=== PATIENT | female | born 1950 | race Caucasian/White ===

== ENCOUNTER 2017-05-20 15:05 | Inpatient (IN) ==
[2017-05-20] MEDS ORDERED: methylPREDNISolone SOD SUC 125 MG/2 ML VIAL IV STA (15:30)
[2017-05-20] MEDS ORDERED: ALBUTEROL 2.5 MG/3 ML NEB RESP TX SCH (15:30)
[2017-05-20] MEDS ORDERED: LEVOFLOXACIN INJ 500 MG in PREMIX 1 EACH IV STA (15:30)
[2017-05-20] MEDS ORDERED: methylPREDNISolone SOD SUC 125 MG/2 ML VIAL ONE (15:33)
--- NOTE | 2017-05-20 15:37 | Emergency Department Note ---
Gerald Strong Brooke, am scribing for, and in the presence of, Russ Chopra MD 15:34 . Keysha Strong James D, MD, personally performed the services described in this documentation, ascribed by Kasie Duarte in my presence, and it is both accurate and complete 537 . Arrival - Arrival Mode of Arrival: Stretcher Limitations: No Limitations Source: Patient, Family, RN Notes Reviewed - History of Present Illness Onset (ago): day(s) ("several") <Russ Chopra - Last Filed: 05/20/17 15:55> <Jhoan Laguerre - Last Filed: 05/20/17 16:40> - Arrival Chief Complaint: Shortness of Breath Stated Complaint: shortness of breath times one week; COPD Time Seen by Provider: 05/20/17 15:27 - History of Present Illness HPI Narrative: Patient is a 66 year old female who presents to the ED with c/o shortness of breath and wheezing that has been ongoing for the past "several" days. Patient was discharged from [facility], last Saturday, after being admitted with a CVA. Patient says she quit smoking on the day of discharge but did smoke two packs of cigarettes a day. She has home nebulizer breathing treatments but does not have an inhaler. Patient also has PMHx of HTN, anxiety, depression, dyslipidemia, GERD, and back/neck problems. Patient also says Dr. Rasmussen told her she had "heart spasms." (Kasie Duarte) Patient is a 66 year old female who presents to the ED with c/o shortness of breath and wheezing that has been ongoing for the past "several" days. Family and patient both state that she has been short of breath for 1 week. She denies chest pain. Patient was discharged from [facility], last Saturday, after being admitted with a CVA. Patient says she quit smoking on the day of discharge but did smoke two packs of cigarettes a day. She has home nebulizer breathing treatments but does not have an inhaler. Patient also has PMHx of HTN, anxiety, depression, dyslipidemia, GERD, and back/neck problems. Patient also says Dr. Rasmussen told her she had "heart spasms." (Russ Chopra) Allergies/Adverse Reactions: Allergies Allergy/AdvReac Type Severity Reaction Status Date / Time codeine Allergy Vomiting Verified 05/11/17 12:57 morphine Allergy Vomiting Verified 05/11/17 12:57 Home Medications: Home Medications Medication Instructions Recorded Confirmed Type Acetaminophen Tab [Tylenol Tab] 325 mg PO Q6H PRN 05/20/17 05/20/17 History Aspirin Chew Tab 81 mg PO BEDTIME 05/20/17 05/20/17 History Atorvastatin [Lipitor] 40 mg PO BEDTIME 05/20/17 05/20/17 History Clopidogrel Bisulfate [Clopidogrel] 75 mg PO BEDTIME 05/20/17 05/20/17 History Clorazepate Dipotassium 3.75 mg PO DAILY PRN 05/20/17 05/20/17 History Cyclobenzaprine [Flexeril] 10 mg PO TID PRN 05/20/17 05/20/17 History Diclofenac 1% Gel [Voltaren 1% Gel] 1 applic TOP QID 05/20/17 05/20/17 History Gabapentin 300 mg PO BEDTIME 05/20/17 05/20/17 History Isosorbide Dinitrate 30 mg PO DAILY 05/20/17 05/20/17 History Metoprolol Tartrate Tab [Lopressor 25 mg PO BID 05/20/17 05/20/17 History Tab] NIFEdipine [Nifedipine ER] 30 mg PO DAILY 05/20/17 05/20/17 History Nitroglycerin Sl Tab [Nitrostat] 0.4 mg SL Q5M PRN 05/20/17 05/20/17 History Oxycodone HCl/Acetaminophen 1 each PO TID PRN 05/20/17 05/20/17 History [Oxycodone-Acetaminophen 5-325] PARoxetine [Paxil] 0.5 mg PO DAILY 05/20/17 05/20/17 History Review of System - Review of System 12 point system: reviewed and no additional remarkable complaints except as stated - Review of System Constitutional: Absent: fever Respiratory: Present: wheezing, other (shortness of breath). Absent: respiratory distress Skin: Absent: rash <Russ Chopra - Last Filed: 05/20/17 15:55> Medical,Surgical,& Family Hx - Medical History Cardio: History of: Hypertension Psychological: History of: Anxiety Disorders, Depression Endocrine: History of: Dyslipidemia Gastrointestinal: History of: GERD Musculoskeletal: History of: Back/Neck Problems - Surgical History Cardiac Surgeries: Sugical HX of: Cardiac Catheterization Reproductive Surgeries: Surgical HX of;: Hysterectomy - Social History Smoking Status: Smoker, status unknown Frequency of Alcohol Use: None Type of Drug Use: None <Russ Chopra - Last Filed: 05/20/17 15:55> Exam <Russ Chopra - Last Filed: 05/20/17 15:55> <Jhoan Laguerre - Last Filed: 05/20/17 16:40> Vital Signs: Vital Signs Temperature 98.4 F 05/20/17 15:07 Pulse Rate 121 H 05/20/17 15:07 Respiratory Rate 26 H 05/20/17 15:58 Blood Pressure 132/96 05/20/17 15:07 O2 Sat by Pulse Oximetry 96 05/20/17 15:07 GENERAL: This is a well-nourished well-developed chronically and acutely ill- appearing white female in mild respiratory distress. VITAL SIGNS: Reviewed HEENT: Head is atraumatic and normocephalic. Pupils are equal round react to light. Extraocular movements are intact. Oropharynx is benign with moist mucous membranes. NECK: Neck is soft and supple without tenderness. There are no masses. There is no lymphadenopathy. LUNGS: Expiratory wheezes in all lung holloway with prolongation expiratory phase. Chest rises symmetrically. There is no chest wall tenderness. CV: Heart is regular rate and rhythm without murmurs rubs or gallops. ABDOMEN: Abdomen is soft, nontender to palpation. There are no abdominal abnormal masses palpated. There is no organomegaly. Bowel sounds are present and active. SKIN: Skin is warm and dry. No rash. EXTREMITIES: Patient has full range of motion without tenderness. There is no pedal edema. NEUROLOGIC: Awake alert and oriented 4. Cranial nerves II through XII are grossly intact. Motor is 5 over 5 in all extremities bilaterally. (Russ Chopra) Course <Russ Chopra - Last Filed: 05/20/17 15:55> <Jhoan Laguerre - Last Filed: 05/20/17 16:40> - Reevaluation(s) Reevaluation #1: Discussed with patient the need for hospitalization given her abnormality of enzymes and pneumonia. (Jhoan Laguerre) - Consultations Consultation #1: Discussed with Dr. Yolie Cox who will admit her to the ICU. (Jhoan Laguerre) Results - Labs CBC & BMP: 05/20/17 15:27 Lab Results: I have reviewed the patients labs - EKG EKG results: interpreted by ERMD <Russ Chopra - Last Filed: 05/20/17 15:55> - Labs CBC & BMP: 05/20/17 15:27 05/20/17 15:27 - Diagnostic Findings Procedure: Chest x-ray: image reviewed by me, report reviewed by me (Left lower lobe infiltrate) <Jhoan Laguerre - Last Filed: 05/20/17 16:40> - Labs Labs: I have reviewed the laboratory noted the bump in troponins, elevated white blood cell count, and elevated BNP. (Jhoan Laguerre) - Impressions EKG: Sinus tachycardia with a rate of 119, old anteroseptal NE with Q waves present. Minimal ST segment elevation anteriorly without reciprocal changes. ( Russ Chopra) Disposition Case discussed with: patient <Russ Chopra - Last Filed: 05/20/17 15:55> Time of Disposition: 16:40 <Jhoan Laguerre - Last Filed: 05/20/17 16:40> Clinical Impression: Acute exacerbation of chronic obstructive pulmonary disease (COPD), History of recent stroke, Left lower lobe pneumonia, Abnormal cardiac enzymes Disposition: Still a Patient Condition: Guarded
[2017-05-20 15:39] LABS: Basophils # 0.1 10*3/uL (0.0-0.2); Basophils % 0.3 % (0.0-0.8); Eosinophils # 0.2 10*3/uL (0.0-0.87); Eosinophils % 0.6 % (0.00-10.9); Hematocrit 41.2 VOL% (35.7-47.0); Immature Granulocytes Absolute 0.24 #; Lymphocytes # 5.2 10*3/uL (1.4-4.0); Lymphocytes % 22.1 % (21.3-54.2); Mean Corpuscular Hemoglobin 28 PG (27-34); Mean Corpuscular Volume 81.4 FL (87-102); Monocytes # 1.8 10*3/uL (0.11-0.8); Monocytes % 7.6 % (1.7-12.7); Neutrophils # 16.2 10*3/uL (1.4-7.4); Neutrophils % 68.4 % (38.7-73.9); Platelet Count 602 T/CUMM (130-400); Red Blood Count 5.06 MC/CUMM (3.8-5.5); Red Cell Distribution Width 14.2 % (9.3-17.3); White Blood Count 23.7 T/CUMM (4-12)
--- NOTE | 2017-05-20 15:41 | EKG Report ---
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
--- NOTE | 2017-05-20 15:55 | XRay Report ---
History: Shortness of breath Date: 05/20/2017 Study: Chest x-ray AP portable Comparison exam: February 05, 2012 The cardiac silhouette is not enlarged. There is no mediastinal mass. The pulmonary vasculature is not engorged. There is moderate aortic arch calcification. There is no gross pleural effusion. There is mild platelike scar or subsegmental atelectasis in the left lower lobe. There is no acute infiltrate otherwise. Osseous structures are unchanged. Impression: Mild platelike scar or subsegmental atelectasis left lower lobe. Otherwise unchanged PROCEDURE INTERPRETED AT [facility] DEPARTMENT OF RADIOLOGY Final Report Signed by: Dr. Darshana Mayfield
[2017-05-20 15:59] LABS: Alanine Aminotransferase 27 U/L (13-56); Albumin 2.7 G/DL (3.4-5.0); Alkaline Phosphatase 109 U/L (45-117); Aspartate Amino Transferase 36 U/L (0-37); Bilirubin,Total < 0.39 MG/DL (0.2-1.0); Blood Urea Nitrogen 11 MG/DL (7-18); Calcium 8.8 MG/DL (8.5-10.1); Glucose 106 MG/DL (74-106); Osmolality,Calculated 275.5 MOS/KG (273-304); Potassium 3.5 MMOL/L (3.5-5.1); Sodium 139 MMOL/L (136-145); Total Protein 7.4 G/DL (6.4-8.3)
[2017-05-20 16:00] LABS: Troponin I Only 0.103 NG/ML (0.00-0.045)
[2017-05-20] MEDS ORDERED: LEVOFLOXACIN INJ 100 ML IV ONE (16:07)
[2017-05-20 16:25] LABS: INR 1.1; PT Patient Result 12.2 SECS; Partial Thromboplastin Time 27.9 SECS (0-40)
[2017-05-20 16:32] LABS: ABG Base Excess -2.1 MMOL/L (-2.5-2.5); ABG HCO3 22.7 MMOL/L (20-26); ABG Oxygen Saturation 98.8 % (95-100); ABG PCO2 34.7 MM HG (35-48); ABG PH 7.408 (7.35-7.45); ABG TCO2 18.8 MMOL/L (23-27)
[2017-05-20] MEDS ORDERED: FUROSEMIDE 40 MG/4 ML VIAL IV STA (16:34)
[2017-05-20] MEDS ORDERED: ONDANSETRON 4 MG/2 ML VIAL IV PRN (16:41)
[2017-05-20 16:44] LABS: Eosinophils 1 % (0-10); Lymphocytes 27 % (20-55); Platelet Estimate Increased; Segmented Neutrophils 67 % (50-85); Total Cells Counted 100
[2017-05-20] MEDS ORDERED: FUROSEMIDE 100 MG/10 ML VIAL ONE (16:55)
[2017-05-20] MEDS ORDERED: ALBUTEROL/IPRATROPIUM 3 ML NEB RESP TX SCH (19:00)
--- NOTE | 2017-05-20 19:11 | Internal Med History&Physical ---
Assessment and Plan (1) Hypertension Status: Chronic Current Visit: Yes Qualifiers: Hypertension type: essential hypertension Qualified Code(s): I10 - Essential (primary) hypertension (2) Sinus tachycardia Status: Acute Current Visit: Yes (3) Persistent cough Status: Acute Current Visit: Yes (4) LLL pneumonia Status: Acute Current Visit: Yes (5) Leukocytosis Status: Acute Current Visit: Yes Qualifiers: Leukocytosis type: leukemoid reaction Qualified Code(s): D72.823 - Leukemoid reaction (6) Acute exacerbation of chronic obstructive pulmonary disease (COPD) Status: Acute Current Visit: Yes (7) History of recent stroke Status: Chronic Current Visit: Yes History of Present Illness Chief complaint: shortness of breath and persistent cough History of present illness: Ms. Mcclendon is a 66 year old female with history of COPD, smoking history, HTN, stroke (multiple and small), osteoarthritis, who presented to ER with cough and shortness of breath. She was admitted to ICU with COPD exacerbation, sinus tachycardia, fluctuating HTN. Cardizem IV infusion was started to slow down sinus tach. She has beta bebe, Metoprolol low dose, as home med. Will be restarted. She reports that she quit smoking a few days ago and has refused a Nicotine patch. She was just hospitalized in [place] and was found to have had a small stroke. Symptoms resolved. Now she is here with severe cough, significantly elevated WBC, COPD exacerbation and LLL pneumonia. Consulting Dr. Johnathan Cox to further evaluate. Blood cultures ordered in ER. Started Cefepime, breathing treatments adjusted, Solumedrol. Home Medications Medication Instructions Recorded Confirmed Type Acetaminophen Tab [Tylenol Tab] 325 mg PO Q6H PRN 05/20/17 05/20/17 History Aspirin Chew Tab 81 mg PO BEDTIME 05/20/17 05/20/17 History Atorvastatin [Lipitor] 40 mg PO BEDTIME 05/20/17 05/20/17 History Clopidogrel Bisulfate [Clopidogrel] 75 mg PO BEDTIME 05/20/17 05/20/17 History Clorazepate Dipotassium 3.75 mg PO DAILY PRN 05/20/17 05/20/17 History Cyclobenzaprine [Flexeril] 10 mg PO TID PRN 05/20/17 05/20/17 History Diclofenac 1% Gel [Voltaren 1% Gel] 1 applic TOP QID 05/20/17 05/20/17 History Gabapentin 300 mg PO BEDTIME 05/20/17 05/20/17 History Isosorbide Dinitrate 30 mg PO DAILY 05/20/17 05/20/17 History Metoprolol Tartrate Tab [Lopressor 25 mg PO BID 05/20/17 05/20/17 History Tab] NIFEdipine [Nifedipine ER] 30 mg PO DAILY 05/20/17 05/20/17 History Nitroglycerin Sl Tab [Nitrostat] 0.4 mg SL Q5M PRN 05/20/17 05/20/17 History Oxycodone HCl/Acetaminophen 1 each PO TID PRN 05/20/17 05/20/17 History [Oxycodone-Acetaminophen 5-325] PARoxetine [Paxil] 0.5 mg PO DAILY 05/20/17 05/20/17 History Allergies Allergy/AdvReac Type Severity Reaction Status Date / Time codeine Allergy Vomiting Verified 05/11/17 12:57 morphine Allergy Vomiting Verified 05/11/17 12:57 Medical,Surgical,& Family Hx - Medical History Cardio: History of: Cardiac Dysrhythmia (sinus tachycardia), Hypertension Psychological: History of: Anxiety Disorders, Depression Neurology: History of: Cerebrovascular Accident (04/2017), TIA Endocrine: History of: Dyslipidemia Rheumatology: History of;: Fibromyalgia Respiratory: History of: COPD (smoking history), Pneumonia Genitourinary: History of: Recurring Urinary Tract Infections Gastrointestinal: History of: GERD Musculoskeletal: History of: Back/Neck Problems (chronic pain 5 bulging disks), Herniated Disk (back and neck) - Surgical History Cardiac Surgeries: Sugical HX of: Cardiac Catheterization Abdominal Surgeries: Surgical HX of: Appendectomy, Cholecystectomy Reproductive Surgeries: Surgical HX of;: Hysterectomy - Family History Family History: Reports;: Family Cancer (grandmother(uterus), grandfather(lungs) , brother(colon)), Family Hypertension - Social History Smoking Status: Former smoker Have you smoked in the last 12 months: Yes (a few days ago and quit within last couple days) Frequency of Alcohol Use: None Type of Drug Use: None Functional capacity: independent ambulation - Constitutional Constitutional: Present: fatigue, malaise, weakness - Cardiovascular Cardiovascular: Present: palpitations - Respiratory Respiratory: Present: cough, dyspnea on exertion, wheezing - Psychiatric Psychiatric: Present: anxiety Exam - Constitutional Vitals: Period Temp Pulse Resp BP Sys/Sarmiento Pulse Ox Last 24 Hr 98.4 F-98.4 F 121-134 24-34 132-132/96-96 96-98 General appearance: no acute distress, other (ill-appearing) - Head Head exam: Present: normocephalic - Eye Eye exam: Present: EOMI - Respiratory Respiratory exam: Present: decreased breath sounds, prolonged expiratory phase, rhonchi (diffuse) - Cardiovascular Cardiovascular exam: Present: tachycardia - GI/Abdominal GI/Abdominal exam: Present: normal bowel sounds, soft. Absent: tenderness - Extremities Exam Extremities exam: Absent: edema - Neurological Exam Neurological exam: Present: alert, oriented X3 - Psychiatric Psychiatric exam: Present: normal mood - Skin Skin exam: Present: warm, dry Results - Labs CBC & BMP: 05/20/17 15:27 05/20/17 15:27 - EKG EKG shows: tachycardia - Diagnostic Findings Procedure: Chest x-ray: report reviewed by me, image reviewed by me
[2017-05-20] MEDS ORDERED: NITROGLYCERIN 2% OINT 1 INCH/GM PACK TOP ONE (19:15)
[2017-05-20] MEDS: DILTIAZEM INJ 100 MG in SODIUM CHLORIDE 0.9% 100 ML IV SCH (19:23)
[2017-05-20] MEDS ORDERED: POTASSIUM CHLORIDE 20 MEQ TABLET PO ONE (19:26)
[2017-05-20] MEDS ORDERED: niCARdipine INJ 25 MG in SODIUM CHLORIDE 0.9% 240 ML IV SCH (19:30)
[2017-05-20] MEDS: methylPREDNISolone SOD SUC 40 MG/1 ML VIAL IV SCH (19:46)
[2017-05-20] MEDS ORDERED: NITROGLYCERIN SL 0.4 MG TABLET SL PRN (19:46)
[2017-05-20] MEDS ORDERED: DILTIAZEM 50 MG/10 ML VIAL IV ONE (19:59)
[2017-05-20] MEDS: IPRATROPIUM 500 MCG/2.5 ML NEB RESP TX SCH (20:04)
[2017-05-20] MEDS: LEVALBUTEROL 1.25 MG/3 ML NEB RESP TX SCH (20:04)
[2017-05-20] MEDS: ASPIRIN CHEW 81 MG TABLET PO SCH (20:47)
[2017-05-20] MEDS: GABAPENTIN 300 MG CAPSULE PO SCH (20:47)
[2017-05-20] MEDS: METOPROLOL TARTRATE 25 MG TABLET PO SCH (20:47)
[2017-05-20] MEDS: BENZONATATE 100 MG CAPSULE PO SCH (21:38)
[2017-05-20] MEDS: CEFEPIME 1,000 MG in SODIUM CHLORIDE 0.9% 100 ML IV SCH (21:38)
[2017-05-20] MEDS: PHENOL 1.4% THROAT SPRAY 177 ML BOTTLE PO SCH (21:39)
[2017-05-20] MEDS: DICLOFENAC 1% GEL 100 GM TUBE TOP SCH (21:39)
[2017-05-20] MEDS ORDERED: methylPREDNISolone SOD SUC 125 MG/2 ML VIAL IV SCH (23:00)
[2017-05-20] MEDS ORDERED: IPRATROPIUM 500 MCG/2.5 ML NEB RESP TX SCH (23:00)
[2017-05-20] MEDS ORDERED: LEVALBUTEROL 1.25 MG/3 ML NEB RESP TX SCH (23:00)
[2017-05-21] MEDS: LEVALBUTEROL 1.25 MG/3 ML NEB RESP TX SCH ×7 (00:13→23:39)
[2017-05-21] MEDS: IPRATROPIUM 500 MCG/2.5 ML NEB RESP TX SCH ×7 (00:13→23:39)
[2017-05-21] MEDS: PHENOL 1.4% THROAT SPRAY 177 ML BOTTLE PO SCH ×6 (03:00→21:24)
[2017-05-21 03:43] LABS: ABG HCO3 25.3 MMOL/L (20-26); ABG Oxygen Saturation 96.4 % (95-100); ABG PCO2 34.1 MM HG (35-48); ABG PH 7.461 (7.35-7.45); ABG PO2 84.4 MM HG (80-95); ABG TCO2 21.2 MMOL/L (23-27); Allen Test Positive
[2017-05-21] MEDS: CEFEPIME 1,000 MG in SODIUM CHLORIDE 0.9% 100 ML IV SCH ×3 (04:40→18:32)
[2017-05-21] MEDS: methylPREDNISolone SOD SUC 40 MG/1 ML VIAL IV SCH ×3 (05:20→18:31)
[2017-05-21] MEDS: DILTIAZEM INJ 100 MG in SODIUM CHLORIDE 0.9% 100 ML IV SCH (05:22)
[2017-05-21 05:27] LABS: Basophils % 0.2 % (0.0-0.8); Hematocrit 36.9 VOL% (35.7-47.0); Hemoglobin 12.5 GM/DL (12.0-16.0); Immature Granulocytes % 1.9 %; Immature Granulocytes Absolute 0.44 #; Lymphocytes # 4.1 10*3/uL (1.4-4.0); Mean Corpuscular HGB Conc 33.9 GM/DL (32-36); Mean Corpuscular Hemoglobin 28 PG (27-34); Mean Corpuscular Volume 81.5 FL (87-102); Monocytes # 1.1 10*3/uL (0.11-0.8); Monocytes % 4.9 % (1.7-12.7); Neutrophils # 17.2 10*3/uL (1.4-7.4); Platelet Count 636 T/CUMM (130-400); Red Blood Count 4.53 MC/CUMM (3.8-5.5); Red Cell Distribution Width 14.1 % (9.3-17.3); White Blood Count 22.9 T/CUMM (4-12)
[2017-05-21 05:54] LABS: Hypochromasia 1+; Lymphocytes 16 % (20-55); Platelet Estimate Increased; Segmented Neutrophils 79 % (50-85); Total Cells Counted 100
[2017-05-21 06:13] LABS: Alanine Aminotransferase 23 U/L (13-56); Albumin 2.3 G/DL (3.4-5.0); Alkaline Phosphatase 96 U/L (45-117); Aspartate Amino Transferase 25 U/L (0-37); Bilirubin,Total < 0.39 MG/DL (0.2-1.0); Blood Urea Nitrogen 17 MG/DL (7-18); Calcium 8.9 MG/DL (8.5-10.1); Glucose 148 MG/DL (74-106); Osmolality,Calculated 283.4 MOS/KG (273-304); Potassium 3.6 MMOL/L (3.5-5.1); Sodium 140 MMOL/L (136-145); Total Protein 6.8 G/DL (6.4-8.3)
[2017-05-21 06:15] LABS: Troponin I Only 0.108 NG/ML (0.00-0.045)
--- NOTE | 2017-05-21 07:05 | EKG Report ---
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
[2017-05-21] MEDS ORDERED: FUROSEMIDE 40 MG/4 ML VIAL IV SCH (08:00)
--- NOTE | 2017-05-21 08:01 | Pulmonology Consult Note ---
Assessment and Plan (1) Acute exacerbation of chronic obstructive pulmonary disease (COPD) Status: Acute Assessment and plan: The patient is a smoker with at least a component of COPD. She says this is her first exacerbation. She apparently was very tight yesterday but is doing better now. She will continue with steroids and bronchodilators and can probably move to a regular room. Current Visit: Yes (2) History of recent stroke Status: Chronic Assessment and plan: She has improved from a recent stroke and will continue present medicines. Current Visit: Yes (3) Hypertension Status: Chronic Assessment and plan: Her blood pressure tends to be on the high side. Current Visit: Yes Qualifiers: Hypertension type: essential hypertension Qualified Code(s): I10 - Essential (primary) hypertension (4) LLL pneumonia Status: Acute Assessment and plan: The patient has a mild left lower lobe pneumonia. She will continue with antibiotics. Current Visit: Yes History of Present Illness Chief complaint: Shortness of breath History of present illness: Ms. Mcclendon is a 66 year old white female that has a long history of smoking and some COPD. She has a history of hypertension and recently had a CVA. She apparently had been at [facility] until last week. She states last week she started having some cough and congestion and started wheezing. She says she has not had problems like this before. She came in yesterday with marked bronchospasm and congestion and was admitted to the ICU. She was felt to have a mild pneumonia. She says she has never used bronchodilators until now. He did have a tachycardia that is doing a little better. At present she feels like her breathing is improving. She is not having any chest pain. She says she did have fever and chills. Home Medications Medication Instructions Recorded Confirmed Type Acetaminophen Tab [Tylenol Tab] 325 mg PO Q6H PRN 05/20/17 05/20/17 History Aspirin Chew Tab 81 mg PO BEDTIME 05/20/17 05/20/17 History Atorvastatin [Lipitor] 40 mg PO BEDTIME 05/20/17 05/20/17 History Clopidogrel Bisulfate [Clopidogrel] 75 mg PO BEDTIME 05/20/17 05/20/17 History Clorazepate Dipotassium 3.75 mg PO DAILY PRN 05/20/17 05/20/17 History Cyclobenzaprine [Flexeril] 10 mg PO TID PRN 05/20/17 05/20/17 History Diclofenac 1% Gel [Voltaren 1% Gel] 1 applic TOP QID 05/20/17 05/20/17 History Gabapentin 300 mg PO BEDTIME 05/20/17 05/20/17 History Isosorbide Dinitrate 30 mg PO DAILY 05/20/17 05/20/17 History Metoprolol Tartrate Tab [Lopressor 25 mg PO BID 05/20/17 05/20/17 History Tab] NIFEdipine [Nifedipine ER] 30 mg PO DAILY 05/20/17 05/20/17 History Nitroglycerin Sl Tab [Nitrostat] 0.4 mg SL Q5M PRN 05/20/17 05/20/17 History Oxycodone HCl/Acetaminophen 1 each PO TID PRN 05/20/17 05/20/17 History [Oxycodone-Acetaminophen 5-325] PARoxetine [Paxil] 0.5 mg PO DAILY 05/20/17 05/20/17 History Allergies Allergy/AdvReac Type Severity Reaction Status Date / Time codeine Allergy Vomiting Verified 05/11/17 12:57 morphine Allergy Vomiting Verified 05/11/17 12:57 - Constitutional Constitutional: Present: chills, fatigue, fever(s), malaise. Absent: weight loss - EENT Eyes: Absent: loss of vision Ears: Absent: decreased hearing Nose, mouth and throat: Absent: dysphagia, headache(s), sinus pressure - Cardiovascular Cardiovascular: Present: dyspnea, palpitations. Absent: chest pain at rest, chest pain with activity, edema - Respiratory Respiratory: Present: cough, dyspnea, wheezing, change in phlegm color. Absent : hemoptysis - Gastrointestinal Gastrointestinal: Absent: abdominal pain, change in bowel habits, dysphagia, nausea, vomiting - Genitourinary Genitourinary: Absent: difficulty urinating, dysuria, hematuria, urinary frequency - Musculoskeletal Musculoskeletal: Absent: arthralgias - Neurological Neurological: Present: focal weakness (She had right-sided weakness that has improved). Absent: abnormal speech, confusion - Psychiatric Psychiatric: Present: anxiety Exam (Pulmonay) H&P - Constitutional Vitals: Period Temp Pulse Resp BP Sys/Sarmiento Pulse Ox Last 24 Hr 98.2 F-98.7 F 81-150 18-35 105-190/45-124 91-100 General appearance: normal weight, mild distress (She does look somewhat ill at the present time. Her respiratory distress has improved.) - Head Head exam: Present: normal inspection, normocephalic - Eye Eye exam: Present: EOMI. Absent: scleral icterus Pupils: Present: NITESH - ENT ENT exam: Present: normal exam - Neck Neck exam: Present: normal inspection. Absent: lymphadenopathy, thyromegaly - Respiratory Respiratory exam: Present: prolonged expiratory phase, rhonchi, wheezes, other ( She has fairly good air movement now.) - Cardiovascular Cardiovascular exam: Present: regular rate and rhythm, tachycardia. Absent: gallop, systolic murmur - GI/Abdominal GI/Abdominal exam: Present: normal bowel sounds, soft. Absent: organomegaly, tenderness - Extremities Exam Extremities exam: Absent: calf tenderness, edema - Neurological Exam Neurological exam: Present: alert, oriented X3, CN II-XII intact. Absent: motor sensory deficit (She has no definite weakness now) - Psychiatric Psychiatric exam: Present: normal affect, normal mood - Skin Skin exam: Present: warm, dry Medical,Surgical,& Family Hx - Medical History Cardio: History of: Cardiac Dysrhythmia (sinus tachycardia), Hypertension Psychological: History of: Anxiety Disorders, Depression Neurology: History of: Cerebrovascular Accident (04/2017), TIA Endocrine: History of: Dyslipidemia Rheumatology: History of;: Fibromyalgia Respiratory: History of: COPD (smoking history), Pneumonia Genitourinary: History of: Recurring Urinary Tract Infections Gastrointestinal: History of: GERD Musculoskeletal: History of: Back/Neck Problems (chronic pain 5 bulging disks), Herniated Disk (back and neck) - Surgical History Cardiac Surgeries: Sugical HX of: Cardiac Catheterization Abdominal Surgeries: Surgical HX of: Appendectomy, Cholecystectomy Reproductive Surgeries: Surgical HX of;: Hysterectomy - Family History Family History: Reports;: Family Cancer (grandmother(uterus), grandfather(lungs) , brother(colon)), Family Hypertension - Social History Smoking Status: Former smoker Frequency of Alcohol Use: None Type of Drug Use: None Results - Labs CBC & BMP: 05/21/17 05:18 05/21/17 05:18 Labs: PO2 is 84 with a PCO2 of 34 and a pH of 7.46 today. - Diagnostic Findings Procedure: Chest x-ray: image reviewed by me, report reviewed by me (Chest x- ray shows COPD changes with only minimal left lower lobe infiltrate.)
[2017-05-21] MEDS: ISOSORBIDE DINITRATE 20 MG TABLET PO SCH (09:24)
[2017-05-21] MEDS: POTASSIUM CHLORIDE 20 MEQ TABLET PO SCH (09:24)
[2017-05-21] MEDS: CLOPIDOGREL 75 MG TABLET PO SCH (09:25)
[2017-05-21] MEDS: METOPROLOL TARTRATE 25 MG TABLET PO SCH ×2 (09:25→20:28)
[2017-05-21] MEDS: BENZONATATE 100 MG CAPSULE PO SCH ×3 (09:25→20:28)
[2017-05-21] MEDS: PANTOPRAZOLE 40 MG TABLET PO SCH (09:25)
[2017-05-21] MEDS: PARoxetine 20 MG TABLET PO SCH (09:25)
[2017-05-21] MEDS: FUROSEMIDE 40 MG/4 ML VIAL IV SCH (09:26)
[2017-05-21] MEDS: DICLOFENAC 1% GEL 100 GM TUBE TOP SCH ×4 (09:31→20:28)
[2017-05-21] MEDS: DESITIN 4OZ/NYSTATIN 15 GRAM MIXTURE PASTE TOP SCH ×2 (11:10→21:25)
[2017-05-21] MEDS ORDERED: LEVOFLOXACIN INJ 750 MG in PREMIX 1 EACH IV SCH (17:00)
[2017-05-21] MEDS: SODIUM CHLORIDE 0.45% 1,000 ML IV SCH (20:07)
[2017-05-21] MEDS: GABAPENTIN 300 MG CAPSULE PO SCH (20:27)
[2017-05-21] MEDS: ASPIRIN CHEW 81 MG TABLET PO SCH (20:27)
--- NOTE | 2017-05-21 21:07 | Internal Med Progress Note ---
Assessment and Plan (1) Hypertension Status: Chronic Current Visit: Yes Qualifiers: Hypertension type: essential hypertension Qualified Code(s): I10 - Essential (primary) hypertension (2) Sinus tachycardia Status: Acute Current Visit: Yes (3) Persistent cough Status: Chronic Current Visit: Yes (4) LLL pneumonia Status: Acute Current Visit: Yes (5) Leukocytosis Status: Acute Current Visit: Yes Qualifiers: Leukocytosis type: leukemoid reaction Qualified Code(s): D72.823 - Leukemoid reaction (6) Acute exacerbation of chronic obstructive pulmonary disease (COPD) Status: Acute Current Visit: Yes (7) History of recent stroke Status: Chronic Current Visit: Yes Internal Medicine - PN: Subj Interval history: Ms. Mcclendon is a 66 year old female with history of COPD, smoking history, HTN, stroke (multiple and small), osteoarthritis, who presented to ER with cough and shortness of breath. She was admitted to ICU with COPD exacerbation, sinus tachycardia, fluctuating HTN. Cardizem IV infusion was started to slow down sinus tach. She has beta bebe, Metoprolol low dose, as home med. Will be restarted. She reports that she quit smoking a few days ago and has refused a Nicotine patch. She was just hospitalized in [place] and was found to have had a small stroke. Symptoms resolved. Now she is here with severe cough, significantly elevated WBC, COPD exacerbation and LLL pneumonia. Consulting Dr. Johnathan Cox to further evaluate. Blood cultures ordered in ER. Started Cefepime, breathing treatments adjusted, Solumedrol. Feeling much better after treatment last night. Heart rate now controlled, and breathing better. Exam (Progress Note) - Constitutional Vitals: Period Temp Pulse Resp BP Sys/Sarmiento Pulse Ox Last 24 Hr 96.0 F-98.6 F 75-104 16-33 119-181/45-89 91-100 General appearance: no acute distress - Respiratory Respiratory exam: Present: rhonchi (scattered and diffuse) - Cardiovascular Cardiovascular exam: Present: regular rate and rhythm - GI/Abdominal GI/Abdominal exam: Present: normal bowel sounds, soft. Absent: tenderness - Extremities Exam Extremities exam: Absent: edema - Neurological Exam Neurological exam: Present: alert, oriented X3 - Psychiatric Psychiatric exam: Present: normal affect, normal mood - Skin Skin exam: Present: warm, dry Results - Labs CBC & BMP: 05/21/17 05:18 05/21/17 05:18
[2017-05-21] MEDS: CLORAZEPATE 3.75 MG TABLET PO PRN (23:31)
[2017-05-22] MEDS: PHENOL 1.4% THROAT SPRAY 177 ML BOTTLE PO SCH ×7 (03:12→22:59)
[2017-05-22] MEDS: IPRATROPIUM 500 MCG/2.5 ML NEB RESP TX SCH ×3 (03:19→10:33)
[2017-05-22] MEDS: LEVALBUTEROL 1.25 MG/3 ML NEB RESP TX SCH ×2 (03:19→07:05)
[2017-05-22] MEDS: CEFEPIME 1,000 MG in SODIUM CHLORIDE 0.9% 100 ML IV SCH ×3 (05:20→19:56)
[2017-05-22] MEDS: methylPREDNISolone SOD SUC 40 MG/1 ML VIAL IV SCH ×3 (05:20→19:55)
[2017-05-22 06:09] LABS: Basophils # 0.1 10*3/uL (0.0-0.2); Basophils % 0.2 % (0.0-0.8); Hematocrit 37.8 VOL% (35.7-47.0); Hemoglobin 12.3 GM/DL (12.0-16.0); Immature Granulocytes % 3.7 %; Lymphocytes # 5.3 10*3/uL (1.4-4.0); Lymphocytes % 15.1 % (21.3-54.2); Mean Corpuscular HGB Conc 32.5 GM/DL (32-36); Mean Corpuscular Hemoglobin 28 PG (27-34); Mean Corpuscular Volume 85.5 FL (87-102); Mean Platelet Volume 9.9 FL (9.6-12.0); Monocytes # 2.4 10*3/uL (0.11-0.8); Monocytes % 6.9 % (1.7-12.7); Neutrophils # 26.1 10*3/uL (1.4-7.4); Neutrophils % 74.1 % (38.7-73.9); Platelet Count 645 T/CUMM (130-400); Red Blood Count 4.42 MC/CUMM (3.8-5.5); Red Cell Distribution Width 14.6 % (9.3-17.3); White Blood Count 35.2 T/CUMM (4-12)
[2017-05-22 06:34] LABS: Calcium 9.1 MG/DL (8.5-10.1)
[2017-05-22 06:35] LABS: Osmolality,Calculated 285.3 MOS/KG (273-304); Potassium 3.6 MMOL/L (3.5-5.1)
[2017-05-22 06:39] LABS: Lymphocytes 21 % (20-55); Segmented Neutrophils 72 % (50-85); Total Cells Counted 100
[2017-05-22 06:42] LABS: Hypochromasia 1+; Platelet Estimate Increased
--- NOTE | 2017-05-22 07:49 | Pulmonology Progress Note ---
Pulmonary - PN: Subj Interval history: The patient is a 66-year-old white lady that has a long history of cigarette smoking and comes in now with a COPD exacerbation. She may have some mild pneumonia but this is mainly just COPD. She is having coughing spells and sore throat. Her breathing may be a little better and she is having a little less wheezing. Her blood pressure heart rate are a little elevated. Overall she had a reasonable night. Exam (Progress Note) - Constitutional Vitals: Period Temp Pulse Resp BP Sys/Sarmiento Pulse Ox Last 24 Hr 96.0 F-98.7 F 75-108 16-28 136-181/52-87 89-99 Exam: General appearance: normal weight, less distress (She does look somewhat ill at the present time. She is alert and reasonably comfortable) - Head Head exam: Present: normal inspection, normocephalic - Eye Eye exam: Present: EOMI. Absent: scleral icterus Pupils: Present: NITESH - ENT ENT exam: Present: normal exam - Neck Neck exam: Present: normal inspection. Absent: lymphadenopathy, thyromegaly - Respiratory Respiratory exam: Present: She has fairly good breath sounds bilaterally with prolonged expiration and only minimal rhonchi now. I do not hear any signs of consolidation. - Cardiovascular Cardiovascular exam: Present: regular rate and rhythm, tachycardia. Absent: gallop, systolic murmur - GI/Abdominal GI/Abdominal exam: Present: normal bowel sounds, soft. Absent: organomegaly, tenderness - Extremities Exam Extremities exam: Absent: calf tenderness, edema - Neurological Exam Neurological exam: Present: alert, oriented X3, CN II-XII intact. Absent: motor sensory deficit (She has no definite weakness now) - Psychiatric Psychiatric exam: Present: normal affect, normal mood - Skin Skin exam: Present: warm, dry Results - Labs CBC & BMP: 05/22/17 05:26 05/22/17 05:26 Assessment and Plan (1) Acute exacerbation of chronic obstructive pulmonary disease (COPD) Status: Acute Assessment and plan: The patient is a smoker with at least a component of COPD. She says this is her first exacerbation. She apparently was very tight yesterday but is doing better now. She still has considerable bronchitis and has a harsh coughing spells. Her wheezing is a little better. Current Visit: Yes (2) History of recent stroke Status: Chronic Assessment and plan: She has improved from a recent stroke and will continue present medicines. Current Visit: Yes (3) Hypertension Status: Chronic Assessment and plan: Her blood pressure tends to be on the high side. Current Visit: Yes Qualifiers: Hypertension type: essential hypertension Qualified Code(s): I10 - Essential (primary) hypertension (4) LLL pneumonia Status: Acute Assessment and plan: The patient has a mild left lower lobe pneumonia. She will continue with antibiotics. So far nothing on cultures. Current Visit: Yes
[2017-05-22] MEDS: FUROSEMIDE 40 MG/4 ML VIAL IV SCH (08:47)
[2017-05-22] MEDS: CLOPIDOGREL 75 MG TABLET PO SCH (08:48)
[2017-05-22] MEDS: PARoxetine 20 MG TABLET PO SCH (08:48)
[2017-05-22] MEDS: POTASSIUM CHLORIDE 20 MEQ TABLET PO SCH (08:49)
[2017-05-22] MEDS: ISOSORBIDE DINITRATE 20 MG TABLET PO SCH (08:49)
[2017-05-22] MEDS: PANTOPRAZOLE 40 MG TABLET PO SCH (08:50)
[2017-05-22] MEDS: METOPROLOL TARTRATE 25 MG TABLET PO SCH ×3 (08:50→20:56)
[2017-05-22] MEDS: DESITIN 4OZ/NYSTATIN 15 GRAM MIXTURE PASTE TOP SCH ×2 (08:51→20:56)
[2017-05-22] MEDS: BENZONATATE 100 MG CAPSULE PO SCH ×4 (08:51→20:56)
[2017-05-22] MEDS: DICLOFENAC 1% GEL 100 GM TUBE TOP SCH ×4 (08:52→20:56)
[2017-05-22] MEDS: ALBUTEROL/IPRATROPIUM 3 ML NEB RESP TX SCH ×4 (10:35→23:43)
--- NOTE | 2017-05-22 15:52 | Internal Med Progress Note ---
Assessment and Plan (1) Hypertension Status: Chronic Current Visit: Yes Qualifiers: Hypertension type: essential hypertension Qualified Code(s): I10 - Essential (primary) hypertension (2) Sinus tachycardia Status: Acute Current Visit: Yes (3) Persistent cough Status: Chronic Current Visit: Yes (4) LLL pneumonia Status: Acute Current Visit: Yes (5) Leukocytosis Status: Acute Current Visit: Yes Qualifiers: Leukocytosis type: leukemoid reaction Qualified Code(s): D72.823 - Leukemoid reaction (6) Acute exacerbation of chronic obstructive pulmonary disease (COPD) Status: Acute Current Visit: Yes (7) History of recent stroke Status: Chronic Current Visit: Yes Internal Medicine - PN: Subj Interval history: Ms. Mcclendon is a 66 year old female with history of COPD, smoking history, HTN, stroke (multiple and small), osteoarthritis, who presented to ER with cough and shortness of breath. She was admitted to ICU with COPD exacerbation, sinus tachycardia, fluctuating HTN. Cardizem IV infusion was started to slow down sinus tach. She has beta bebe, Metoprolol low dose, as home med. Will be restarted. She reports that she quit smoking a few days ago and has refused a Nicotine patch. She was just hospitalized in [place] and was found to have had a small stroke. Symptoms resolved. Now she is here with severe cough, significantly elevated WBC, COPD exacerbation and LLL pneumonia. Consulting Dr. Johnathan Cox to further evaluate. Blood cultures ordered in ER. Started Cefepime, breathing treatments adjusted, Solumedrol. Adjusting Metoprolol for better heart rate control. Decreasing Solumedrol to help WBC. Increasing Nifedipine. Exam (Progress Note) - Constitutional Vitals: Period Temp Pulse Resp BP Sys/Sarmiento Pulse Ox Last 24 Hr 97.9 F-98.7 F 83-163 16-31 119-165/55-86 88-100 Exam: General appearance: no acute distress - Respiratory Respiratory exam: Present: rhonchi (scattered and diffuse) improved - Cardiovascular Cardiovascular exam: Present: regular rate and rhythm - GI/Abdominal GI/Abdominal exam: Present: normal bowel sounds, soft. Absent: tenderness - Extremities Exam Extremities exam: Absent: edema - Neurological Exam Neurological exam: Present: alert, oriented X3 - Psychiatric Psychiatric exam: Present: normal affect, normal mood - Skin Skin exam: Present: warm, dry Results - Labs CBC & BMP: 05/22/17 05:26 05/22/17 05:26
[2017-05-22] MEDS: SODIUM CHLORIDE 0.45% 1,000 ML IV SCH ×2 (15:54→23:00)
[2017-05-22] MEDS: ASPIRIN CHEW 81 MG TABLET PO SCH ×2 (19:55→20:56)
[2017-05-22] MEDS: CLORAZEPATE 3.75 MG TABLET PO PRN (19:55)
[2017-05-22] MEDS: GABAPENTIN 300 MG CAPSULE PO SCH ×2 (19:55→20:56)
[2017-05-23] MEDS: PHENOL 1.4% THROAT SPRAY 177 ML BOTTLE PO SCH ×6 (03:11→21:21)
[2017-05-23] MEDS: CEFEPIME 1,000 MG in SODIUM CHLORIDE 0.9% 100 ML IV SCH ×3 (03:32→20:19)
[2017-05-23] MEDS: ALBUTEROL/IPRATROPIUM 3 ML NEB RESP TX SCH ×6 (03:37→23:40)
[2017-05-23] MEDS ORDERED: methylPREDNISolone SOD SUC 40 MG/1 ML VIAL IV SCH (04:00)
[2017-05-23 05:53] LABS: Basophils # 0.1 10*3/uL (0.0-0.2); Basophils % 0.2 % (0.0-0.8); Hematocrit 36.4 VOL% (35.7-47.0); Hemoglobin 12.2 GM/DL (12.0-16.0); Immature Granulocytes % 4.5 %; Immature Granulocytes Absolute 1.37 #; Lymphocytes # 4.4 10*3/uL (1.4-4.0); Lymphocytes % 14.5 % (21.3-54.2); Mean Corpuscular HGB Conc 33.5 GM/DL (32-36); Mean Corpuscular Hemoglobin 28 PG (27-34); Mean Corpuscular Volume 82.5 FL (87-102); Mean Platelet Volume 9.8 FL (9.6-12.0); Monocytes # 1.9 10*3/uL (0.11-0.8); Monocytes % 6.2 % (1.7-12.7); Neutrophils # 22.9 10*3/uL (1.4-7.4); Neutrophils % 74.6 % (38.7-73.9); Platelet Count 678 T/CUMM (130-400); Red Blood Count 4.41 MC/CUMM (3.8-5.5); Red Cell Distribution Width 14.4 % (9.3-17.3); White Blood Count 30.7 T/CUMM (4-12)
[2017-05-23 06:13] LABS: Calcium 9.1 MG/DL (8.5-10.1); Osmolality,Calculated 283.4 MOS/KG (273-304); Potassium 3.9 MMOL/L (3.5-5.1)
[2017-05-23] MEDS: SODIUM CHLORIDE 0.45% 1,000 ML IV SCH ×3 (06:14→20:21)
[2017-05-23 06:21] LABS: Band Neutrophils 2 % (0-10); Hypochromasia 1+; Lymphocytes 7 % (20-55); Platelet Estimate Increased; Segmented Neutrophils 85 % (50-85); Total Cells Counted 100
--- NOTE | 2017-05-23 07:25 | XRay Report ---
Exam: XR chest 1V portable Date: 05/23/2017 4:00 AM Indication: COPD Comparison: 05/20/2017 Technical: AP Findings: External cardiac leads are present. Minimal residual infiltrate or atelectatic change in the left base with minimal interstitial thickening right infrahilar region. Heart is normal in size. ASVD is present. Impression: 1. Patchy interstitial filtrate in the left base with mild interstitial thickening the right infrahilar region. PROCEDURE INTERPRETED AT [facility] DEPARTMENT OF RADIOLOGY Final Report Signed by: Dr. Adebayo Reynaga
[2017-05-23] MEDS: ISOSORBIDE DINITRATE 20 MG TABLET PO SCH (08:10)
[2017-05-23] MEDS: BENZONATATE 100 MG CAPSULE PO SCH ×3 (08:10→20:20)
[2017-05-23] MEDS: PARoxetine 20 MG TABLET PO SCH (08:10)
[2017-05-23] MEDS: CLOPIDOGREL 75 MG TABLET PO SCH (08:11)
[2017-05-23] MEDS: PANTOPRAZOLE 40 MG TABLET PO SCH (08:11)
[2017-05-23] MEDS: FUROSEMIDE 40 MG/4 ML VIAL IV SCH (08:11)
[2017-05-23] MEDS: POTASSIUM CHLORIDE 20 MEQ TABLET PO SCH (08:11)
[2017-05-23] MEDS: METOPROLOL TARTRATE 50 MG TABLET PO SCH ×2 (08:11→20:20)
[2017-05-23] MEDS: DICLOFENAC 1% GEL 100 GM TUBE TOP SCH ×4 (08:18→20:20)
[2017-05-23] MEDS: DESITIN 4OZ/NYSTATIN 15 GRAM MIXTURE PASTE TOP SCH ×2 (08:19→20:20)
--- NOTE | 2017-05-23 08:37 | Pulmonology Progress Note ---
Pulmonary - PN: Subj Interval history: The patient is a 66-year-old white lady that has a long history of cigarette smoking and comes in now with a COPD exacerbation. She may have some mild pneumonia but this is mainly just COPD. She is feeling much better today than yesterday. Her coughing spells are less and her shortness of breath has improved. She is eating a little better and overall feels better. Exam (Progress Note) - Constitutional Vitals: Period Temp Pulse Resp BP Sys/Sarmiento Pulse Ox Last 24 Hr 97.6 F-98.5 F 82-119 14-36 119-176/51-81 88-100 Exam: General appearance: normal weight, less distress (She is alert and looks comfortable today.) - Head Head exam: Present: normal inspection, normocephalic - Eye Eye exam: Present: EOMI. Absent: scleral icterus Pupils: Present: NITESH - ENT ENT exam: Present: normal exam - Neck Neck exam: Present: normal inspection. Absent: lymphadenopathy, thyromegaly - Respiratory Respiratory exam: Present: She has fairly good breath sounds bilaterally with prolonged expiration and is moving air a little better with less wheezing. - Cardiovascular Cardiovascular exam: Present: regular rate and rhythm, tachycardia. Absent: gallop, systolic murmur - GI/Abdominal GI/Abdominal exam: Present: normal bowel sounds, soft. Absent: organomegaly, tenderness - Extremities Exam Extremities exam: Absent: calf tenderness, edema - Neurological Exam Neurological exam: Present: alert, oriented X3, CN II-XII intact. Absent: motor sensory deficit (She has no definite weakness now) - Psychiatric Psychiatric exam: Present: normal affect, normal mood - Skin Skin exam: Present: warm, dry Results - Labs CBC & BMP: 05/23/17 04:50 05/23/17 04:50 - Diagnostic Findings Procedure: Chest x-ray: image reviewed by me, report reviewed by me (Chest x- ray shows COPD changes but not much infiltrates.) Assessment and Plan (1) Acute exacerbation of chronic obstructive pulmonary disease (COPD) Status: Acute Assessment and plan: The patient is a smoker with at least a component of COPD. She says this is her first exacerbation. She has had considerable bronchitis with coughing and wheezing. This is getting better each day and today she looks good. Her breathing is better and she is tolerating everything okay. She should be able to go to a regular room today. Current Visit: Yes (2) History of recent stroke Status: Chronic Assessment and plan: She has improved from a recent stroke and will continue present medicines. Current Visit: Yes (3) Hypertension Status: Chronic Assessment and plan: Her blood pressure tends to be on the high side. She is getting her blood pressure medicines. Current Visit: Yes Qualifiers: Hypertension type: essential hypertension Qualified Code(s): I10 - Essential (primary) hypertension (4) LLL pneumonia Status: Acute Assessment and plan: The patient has functional respiratory therapy and her chest x-ray looks better. She does not have much infiltrate now. Current Visit: Yes
[2017-05-23] MEDS: predniSONE 20 MG TABLET PO SCH (09:57)
[2017-05-23] MEDS: GABAPENTIN 300 MG CAPSULE PO SCH (20:20)
[2017-05-23] MEDS: ASPIRIN CHEW 81 MG TABLET PO SCH (20:20)
--- NOTE | 2017-05-23 20:50 | Internal Med Progress Note ---
Assessment and Plan (1) Hypertension Status: Chronic Current Visit: Yes Qualifiers: Hypertension type: essential hypertension Qualified Code(s): I10 - Essential (primary) hypertension (2) Sinus tachycardia Status: Resolved Current Visit: Yes (3) Persistent cough Status: Resolved Current Visit: Yes (4) LLL pneumonia Status: Acute Current Visit: Yes (5) Leukocytosis Status: Acute Current Visit: Yes Qualifiers: Leukocytosis type: leukemoid reaction Qualified Code(s): D72.823 - Leukemoid reaction (6) Acute exacerbation of chronic obstructive pulmonary disease (COPD) Status: Acute Current Visit: Yes (7) History of recent stroke Status: Chronic Current Visit: Yes Internal Medicine - PN: Subj Interval history: Ms. Mcclendon is a 66 year old female with history of COPD, smoking history, HTN, stroke (multiple and small), osteoarthritis, who presented to ER with cough and shortness of breath. She was admitted to ICU with COPD exacerbation, sinus tachycardia, fluctuating HTN. Cardizem IV infusion was started to slow down sinus tach. She has beta bebe, Metoprolol low dose, as home med. Will be restarted. She reports that she quit smoking a few days ago and has refused a Nicotine patch. She was just hospitalized in [place] and was found to have had a small stroke. Symptoms resolved. Now she is here with severe cough, significantly elevated WBC, COPD exacerbation and LLL pneumonia. Consulting Dr. Johnathan Cox to further evaluate. Blood cultures ordered in ER. Started Cefepime, breathing treatments adjusted, Solumedrol. Adjusting Metoprolol for better heart rate control. Decreasing Solumedrol to help WBC. Increasing Nifedipine. Doing better today and transferred to the Med/Surg floor. Exam (Progress Note) - Constitutional Vitals: Period Temp Pulse Resp BP Sys/Sarmiento Pulse Ox Last 24 Hr 97.3 F-98.5 F 76-99 14-31 146-176/51-74 89-98 Exam: General appearance: no acute distress - Respiratory Respiratory exam: Present: rhonchi (scattered and diffuse) continuing to improve - Cardiovascular Cardiovascular exam: Present: regular rate and rhythm - GI/Abdominal GI/Abdominal exam: Present: normal bowel sounds, soft. Absent: tenderness - Extremities Exam Extremities exam: Absent: edema - Neurological Exam Neurological exam: Present: alert, oriented X3 - Psychiatric Psychiatric exam: Present: normal affect, normal mood - Skin Skin exam: Present: warm, dry Results - Labs CBC & BMP: 05/23/17 04:50 05/23/17 04:50
[2017-05-24] MEDS: PHENOL 1.4% THROAT SPRAY 177 ML BOTTLE PO SCH ×6 (01:34→20:46)
[2017-05-24] MEDS: CEFEPIME 1,000 MG in SODIUM CHLORIDE 0.9% 100 ML IV SCH ×3 (03:07→19:38)
[2017-05-24] MEDS: ALBUTEROL/IPRATROPIUM 3 ML NEB RESP TX SCH ×6 (03:07→23:59)
[2017-05-24 06:05] LABS: Basophils # 0.1 10*3/uL (0.0-0.2); Basophils % 0.3 % (0.0-0.8); Hematocrit 37.2 VOL% (35.7-47.0); Hemoglobin 12.2 GM/DL (12.0-16.0); Immature Granulocytes % 4.5 %; Immature Granulocytes Absolute 1.34 #; Lymphocytes # 10.7 10*3/uL (1.4-4.0); Lymphocytes % 35.5 % (21.3-54.2); Mean Corpuscular HGB Conc 32.8 GM/DL (32-36); Mean Corpuscular Hemoglobin 27 PG (27-34); Mean Corpuscular Volume 83.2 FL (87-102); Mean Platelet Volume 9.8 FL (9.6-12.0); Monocytes # 2.3 10*3/uL (0.11-0.8); Monocytes % 7.6 % (1.7-12.7); Neutrophils # 15.7 10*3/uL (1.4-7.4); Neutrophils % 52.1 % (38.7-73.9); Platelet Count 744 T/CUMM (130-400); Red Blood Count 4.47 MC/CUMM (3.8-5.5); Red Cell Distribution Width 14.5 % (9.3-17.3)
[2017-05-24 06:33] LABS: Calcium 8.8 MG/DL (8.5-10.1); Osmolality,Calculated 282.3 MOS/KG (273-304); Potassium 3.8 MMOL/L (3.5-5.1)
[2017-05-24 06:38] LABS: Hypochromasia 1+; Lymphocytes 31 % (20-55); Microcytosis Slight; Segmented Neutrophils 63 % (50-85); Total Cells Counted 100
[2017-05-24 06:39] LABS: Platelet Estimate Increased
[2017-05-24] MEDS: SODIUM CHLORIDE 0.45% 1,000 ML IV SCH (08:55)
[2017-05-24] MEDS: predniSONE 20 MG TABLET PO SCH (08:56)
[2017-05-24] MEDS: BENZONATATE 100 MG CAPSULE PO SCH ×3 (08:56→20:46)
[2017-05-24] MEDS: ISOSORBIDE DINITRATE 20 MG TABLET PO SCH (08:56)
[2017-05-24] MEDS: CLOPIDOGREL 75 MG TABLET PO SCH (08:56)
[2017-05-24] MEDS: PARoxetine 20 MG TABLET PO SCH (08:57)
[2017-05-24] MEDS: DICLOFENAC 1% GEL 100 GM TUBE TOP SCH ×4 (08:57→20:47)
[2017-05-24] MEDS: METOPROLOL TARTRATE 50 MG TABLET PO SCH ×2 (08:57→20:46)
[2017-05-24] MEDS: DESITIN 4OZ/NYSTATIN 15 GRAM MIXTURE PASTE TOP SCH ×2 (08:57→20:46)
[2017-05-24] MEDS: POTASSIUM CHLORIDE 20 MEQ TABLET PO SCH (08:57)
[2017-05-24] MEDS: PANTOPRAZOLE 40 MG TABLET PO SCH (08:57)
--- NOTE | 2017-05-24 09:11 | Pulmonology Progress Note ---
Pulmonary - PN: Subj Interval history: The patient is a 66-year-old white lady that has a long history of cigarette smoking and comes in now with a COPD exacerbation. She may have some mild pneumonia but this is mainly just COPD. She was moved to a regular room and had a fairly good night. She says she feels much better and is sitting up eating breakfast. Her coughing and wheezing are much better. Her chest x-ray is clear. Exam (Progress Note) - Constitutional Vitals: Period Temp Pulse Resp BP Sys/Sarmiento Pulse Ox Last 24 Hr 97.3 F-98.5 F 76-101 16-28 143-160/55-92 90-97 Exam: General appearance: normal weight, no distress (She is alert and looks comfortable today. She is in no distress at all.) - Head Head exam: Present: normal inspection, normocephalic - Eye Eye exam: Present: EOMI. Absent: scleral icterus Pupils: Present: NITESH - ENT ENT exam: Present: normal exam - Neck Neck exam: Present: normal inspection. Absent: lymphadenopathy, thyromegaly - Respiratory Respiratory exam: Present: She has fairly good breath sounds bilaterally with prolonged expiration and is moving air a little better. She does not have any rales or wheezing now. - Cardiovascular Cardiovascular exam: Present: regular rate and rhythm. Absent: gallop, systolic murmur - GI/Abdominal GI/Abdominal exam: Present: normal bowel sounds, soft. Absent: organomegaly, tenderness - Extremities Exam Extremities exam: Absent: calf tenderness, edema - Neurological Exam Neurological exam: Present: alert, oriented X3, CN II-XII intact. Absent: motor sensory deficit (She has no definite weakness now) - Psychiatric Psychiatric exam: Present: normal affect, normal mood - Skin Skin exam: Present: warm, dry Results - Labs CBC & BMP: 05/24/17 05:34 05/24/17 05:34 - Diagnostic Findings Procedure: Chest x-ray: image reviewed by me, report reviewed by me (Chest x- ray is clear.) Assessment and Plan (1) Acute exacerbation of chronic obstructive pulmonary disease (COPD) Status: Acute Assessment and plan: The patient is a smoker with at least a component of COPD. She says this is her first exacerbation. She has had considerable bronchitis with coughing and wheezing. This is getting better each day and today she looks good. Her breathing is better and she is tolerating everything okay. She rested well last night and feels like she is much better. Current Visit: Yes (2) History of recent stroke Status: Chronic Assessment and plan: She has improved from a recent stroke and will continue present medicines. Current Visit: Yes (3) Hypertension Status: Chronic Assessment and plan: Her blood pressure tends to be on the high side. She is getting her blood pressure medicines. Her heart rate and blood pressure stable at present. Current Visit: Yes Qualifiers: Hypertension type: essential hypertension Qualified Code(s): I10 - Essential (primary) hypertension (4) LLL pneumonia Status: Acute Assessment and plan: The patient is much better and her chest x-ray is clear now. Current Visit: Yes
[2017-05-24] MEDS ORDERED: NICOTINE 14 MG/24 HR PATCH TRANSDERM PRN (13:08)
[2017-05-24] MEDS: BUDESONIDE/FORMOTEROL 160-4.5 INHALER 6 GM INH SCH ×2 (14:17→20:48)
--- NOTE | 2017-05-24 19:31 | Internal Med Progress Note ---
Assessment and Plan (1) Hypertension Status: Chronic Current Visit: Yes Qualifiers: Hypertension type: essential hypertension Qualified Code(s): I10 - Essential (primary) hypertension (2) Sinus tachycardia Status: Resolved Current Visit: Yes (3) Persistent cough Status: Resolved Current Visit: Yes (4) LLL pneumonia Status: Acute Current Visit: Yes (5) Leukocytosis Status: Acute Current Visit: Yes Qualifiers: Leukocytosis type: leukemoid reaction Qualified Code(s): D72.823 - Leukemoid reaction (6) Acute exacerbation of chronic obstructive pulmonary disease (COPD) Status: Acute Current Visit: Yes (7) History of recent stroke Status: Chronic Current Visit: Yes Internal Medicine - PN: Subj Interval history: Ms. Mcclendon is a 66 year old female with history of COPD, smoking history, HTN, stroke (multiple and small), osteoarthritis, who presented to ER with cough and shortness of breath. She was admitted to ICU with COPD exacerbation, sinus tachycardia, fluctuating HTN. Cardizem IV infusion was started to slow down sinus tach. She has beta bebe, Metoprolol low dose, as home med. Will be restarted. She reports that she quit smoking a few days ago and has refused a Nicotine patch. She was just hospitalized in [place] and was found to have had a small stroke. Symptoms resolved. Now she is here with severe cough, significantly elevated WBC, COPD exacerbation and LLL pneumonia. Consulting Dr. Johnathan Cox to further evaluate. Blood cultures ordered in ER. Started Cefepime, breathing treatments adjusted, Solumedrol. Adjusting Metoprolol for better heart rate control. Decreasing Solumedrol to help WBC. Increasing Nifedipine. Continues to improve. Exam (Progress Note) - Constitutional Vitals: Period Temp Pulse Resp BP Sys/Sarmiento Pulse Ox Last 24 Hr 96.2 F-97.8 F 76-101 16-20 143-156/67-92 90-98 Exam: General appearance: no acute distress - Respiratory Respiratory exam: Present: rhonchi (scattered and diffuse) resolving - Cardiovascular Cardiovascular exam: Present: regular rate and rhythm - GI/Abdominal GI/Abdominal exam: Present: normal bowel sounds, soft. Absent: tenderness - Extremities Exam Extremities exam: Absent: edema - Neurological Exam Neurological exam: Present: alert, oriented X3 - Psychiatric Psychiatric exam: Present: normal affect, normal mood - Skin Skin exam: Present: warm, dry Results - Labs CBC & BMP: 05/24/17 05:34 05/24/17 05:34
[2017-05-24] MEDS: ASPIRIN CHEW 81 MG TABLET PO SCH (20:46)
[2017-05-24] MEDS: GABAPENTIN 300 MG CAPSULE PO SCH (20:46)
[2017-05-25] MEDS: ALBUTEROL/IPRATROPIUM 3 ML NEB RESP TX SCH ×5 (03:44→19:39)
[2017-05-25] MEDS: PHENOL 1.4% THROAT SPRAY 177 ML BOTTLE PO SCH ×6 (04:12→22:00)
[2017-05-25] MEDS: CEFEPIME 1,000 MG in SODIUM CHLORIDE 0.9% 100 ML IV SCH ×3 (04:12→18:39)
[2017-05-25 06:35] LABS: Basophils # 0.1 10*3/uL (0.0-0.2); Basophils % 0.3 % (0.0-0.8); Eosinophils % 0.1 % (0.00-10.9); Hematocrit 39.8 VOL% (35.7-47.0); Hemoglobin 13.3 GM/DL (12.0-16.0); Immature Granulocytes % 3.7 %; Immature Granulocytes Absolute 1.08 #; Lymphocytes # 11.3 10*3/uL (1.4-4.0); Lymphocytes % 38.7 % (21.3-54.2); Mean Corpuscular HGB Conc 33.4 GM/DL (32-36); Mean Corpuscular Hemoglobin 28 PG (27-34); Mean Corpuscular Volume 82.7 FL (87-102); Mean Platelet Volume 9.7 FL (9.6-12.0); Monocytes # 1.9 10*3/uL (0.11-0.8); Monocytes % 6.3 % (1.7-12.7); NRBC # 0.03 10*3/uL; Neutrophils # 14.8 10*3/uL (1.4-7.4); Neutrophils % 50.9 % (38.7-73.9); Platelet Count 733 T/CUMM (130-400); Red Blood Count 4.81 MC/CUMM (3.8-5.5); Red Cell Distribution Width 14.6 % (9.3-17.3); White Blood Count 29.2 T/CUMM (4-12)
--- NOTE | 2017-05-25 07:56 | Family Practice Progress Note ---
Family Practice - PN: Subj Interval history: Patient states she had a good night and is feeling much better. She still coughing but states her wheezing is markedly improved. She denies any chest pain this morning. Exam (Progress Note) - Constitutional Vitals: Period Temp Pulse Resp BP Sys/Sarmiento Pulse Ox Last 24 Hr 96.5 F-97.8 F 74-99 16-20 138-160/67-93 91-99 Exam: Objective a pleasant white female no acute distress. She is able give good history. She appears to be quite comfortable at rest. Cardiovascular: Heart rates regular without murmurs or gallops. Respiratory: Patient has mild expiratory wheezes scattered in both lung holloway. Abdomen: Abdomen soft and nontender to palpation. Results - Labs CBC & BMP: 05/25/17 05:11 05/24/17 05:34 Lab Results: I have reviewed the past 24 hour labs Assessment and Plan (1) Acute exacerbation of chronic obstructive pulmonary disease (COPD) Status: Acute Assessment and plan: 05/25/2017: We will continue present therapy. Current Visit: Yes
[2017-05-25 08:06] LABS: Band Neutrophils 4 % (0-10); Lymphocytes 29 % (20-55); Platelet Estimate Increased; Segmented Neutrophils 65 % (50-85)
[2017-05-25 08:07] LABS: Total Cells Counted 100
[2017-05-25] MEDS: POTASSIUM CHLORIDE 20 MEQ TABLET PO SCH (09:50)
[2017-05-25] MEDS: BENZONATATE 100 MG CAPSULE PO SCH ×3 (09:50→21:59)
[2017-05-25] MEDS: METOPROLOL TARTRATE 50 MG TABLET PO SCH ×2 (09:50→21:59)
[2017-05-25] MEDS: PANTOPRAZOLE 40 MG TABLET PO SCH (09:50)
[2017-05-25] MEDS: PARoxetine 20 MG TABLET PO SCH (09:50)
[2017-05-25] MEDS: CLOPIDOGREL 75 MG TABLET PO SCH (09:50)
[2017-05-25] MEDS: predniSONE 20 MG TABLET PO SCH (09:50)
[2017-05-25] MEDS: ISOSORBIDE MONONITRATE 60 MG TABLET PO SCH (09:50)
[2017-05-25] MEDS: BUDESONIDE/FORMOTEROL 160-4.5 INHALER 6 GM INH SCH ×2 (09:52→22:00)
[2017-05-25] MEDS: DICLOFENAC 1% GEL 100 GM TUBE TOP SCH ×3 (09:52→16:14)
[2017-05-25] MEDS: DESITIN 4OZ/NYSTATIN 15 GRAM MIXTURE PASTE TOP SCH (09:52)
--- NOTE | 2017-05-25 11:17 | Pulmonology Progress Note ---
Pulmonary - PN: Subj Interval history: Is a 66-year-old white female who has COPD. She has been significantly ill but did not require mechanical ventilation. She was however NICU for a few days. She continues to slowly improve. There were no new complaints and no new requests today. Lab White count is 29,200 with 51 segs and 39 mA. H&H 13.3/39.8 and platelets are 733,000. Recent electrolytes were normal with a creatinine of 0.5 and a BUN of 21 C-reactive protein was 14.70 Microbiology. No positive cultures Physical exam. Vital signs. See below Psychiatric oriented 3 General. No apparent distress Face. Symmetrical. No edema of the lips or tongue Neck. Symmetrical. No meningismus Lymphatics. No submandibular cervical supraclavicular and Neurologic. Cranial nerves are intact with some decreased hearing acuity bilaterally. Patient moves all 4 extremities. Gait was not tested Chest. Prolonged incomplete expiration Heart no gallop Abdomen. Nondistended nontender. Positive bowel sounds Extremities nothing to suggest deep venous thrombophlebitis The remainder the physical exam is negative Plan. 1. Continue present regimen Exam (Progress Note) - Constitutional Vitals: Period Temp Pulse Resp BP Sys/Sarmiento Pulse Ox Last 24 Hr 96.5 F-97.8 F 74-99 16-20 138-160/67-93 89-99 Results - Labs CBC & BMP: 05/25/17 05:11 05/24/17 05:34
[2017-05-25] MEDS: ASPIRIN CHEW 81 MG TABLET PO SCH (21:59)
[2017-05-25] MEDS: GABAPENTIN 300 MG CAPSULE PO SCH (21:59)
[2017-05-26] MEDS: DICLOFENAC 1% GEL 100 GM TUBE TOP SCH ×6 (02:49→21:22)
[2017-05-26] MEDS: DESITIN 4OZ/NYSTATIN 15 GRAM MIXTURE PASTE TOP SCH ×3 (02:49→21:17)
[2017-05-26] MEDS: ALBUTEROL/IPRATROPIUM 3 ML NEB RESP TX SCH ×7 (03:54→23:44)
[2017-05-26] MEDS: PHENOL 1.4% THROAT SPRAY 177 ML BOTTLE PO SCH ×6 (04:08→21:17)
[2017-05-26] MEDS: CEFEPIME 1,000 MG in SODIUM CHLORIDE 0.9% 100 ML IV SCH ×3 (04:09→20:19)
[2017-05-26 05:46] LABS: Basophils # 0.1 10*3/uL (0.0-0.2); Basophils % 0.2 % (0.0-0.8); Eosinophils # 0.1 10*3/uL (0.0-0.87); Eosinophils % 0.3 % (0.00-10.9); Hematocrit 37.5 VOL% (35.7-47.0); Hemoglobin 12.4 GM/DL (12.0-16.0); Immature Granulocytes % 2.8 %; Immature Granulocytes Absolute 0.88 #; Lymphocytes # 10.2 10*3/uL (1.4-4.0); Lymphocytes % 32.6 % (21.3-54.2); Mean Corpuscular HGB Conc 33.1 GM/DL (32-36); Mean Corpuscular Hemoglobin 28 PG (27-34); Mean Corpuscular Volume 83.7 FL (87-102); Mean Platelet Volume 9.7 FL (9.6-12.0); Monocytes # 1.9 10*3/uL (0.11-0.8); Monocytes % 5.9 % (1.7-12.7); Neutrophils # 18.3 10*3/uL (1.4-7.4); Neutrophils % 58.2 % (38.7-73.9); Platelet Count 683 T/CUMM (130-400); Red Blood Count 4.48 MC/CUMM (3.8-5.5); Red Cell Distribution Width 14.6 % (9.3-17.3); White Blood Count 31.4 T/CUMM (4-12)
[2017-05-26 07:34] LABS: Giant Platelets Few; Hypochromasia 1+; Lymphocytes 31 % (20-55); Microcytosis Slight; Platelet Estimate Adequate; Segmented Neutrophils 64 % (50-85); Total Cells Counted 100
--- NOTE | 2017-05-26 07:54 | Family Practice Progress Note ---
Family Practice - PN: Subj Interval history: Patient states she had a good night and is feeling much better. Patient states her cough is reduced and her wheezing is also improved. Patient's white blood count was noted to be still quite elevated which is probably due to her steroids. Exam (Progress Note) - Constitutional Vitals: Period Temp Pulse Resp BP Sys/Sarmiento Pulse Ox Last 24 Hr 97.4 F-98.4 F 78-96 16-22 123-153/66-84 89-100 Exam: Objective a pleasant white female no acute distress. She is able give good history. She appears to be quite comfortable at rest. Cardiovascular: Heart rates regular without murmurs or gallops. Respiratory: Patient has no expiratory wheeze this morning. Abdomen: Abdomen soft and nontender to palpation. Results - Labs CBC & BMP: 05/26/17 05:08 05/24/17 05:34 Lab Results: I have reviewed the past 24 hour labs Assessment and Plan (1) Acute exacerbation of chronic obstructive pulmonary disease (COPD) Status: Acute Assessment and plan: 05/25/2017: We will continue present therapy. 05/26/2017: We will continue present therapy and repeat portable chest in the a.m. Current Visit: Yes
[2017-05-26] MEDS: PANTOPRAZOLE 40 MG TABLET PO SCH (09:22)
[2017-05-26] MEDS: BENZONATATE 100 MG CAPSULE PO SCH ×3 (09:22→21:16)
[2017-05-26] MEDS: ISOSORBIDE MONONITRATE 60 MG TABLET PO SCH (09:22)
[2017-05-26] MEDS: METOPROLOL TARTRATE 50 MG TABLET PO SCH ×2 (09:22→21:16)
[2017-05-26] MEDS: PARoxetine 20 MG TABLET PO SCH (09:22)
[2017-05-26] MEDS: CLOPIDOGREL 75 MG TABLET PO SCH (09:22)
[2017-05-26] MEDS: predniSONE 20 MG TABLET PO SCH (09:22)
[2017-05-26] MEDS: POTASSIUM CHLORIDE 20 MEQ TABLET PO SCH (09:23)
[2017-05-26] MEDS: BUDESONIDE/FORMOTEROL 160-4.5 INHALER 6 GM INH SCH ×2 (09:23→21:17)
--- NOTE | 2017-05-26 09:59 | Pulmonology Progress Note ---
Pulmonary - PN: Subj Interval history: Is a 66-year-old white female who has COPD. She has been significantly ill but did not require mechanical ventilation. She was however NICU for a few days. She continues to slowly improve. There were no new complaints and no new requests today. Lab White count is 29,200 with 51 segs and 39 mA. H&H 13.3/39.8 and platelets are 733,000. Recent electrolytes were normal with a creatinine of 0.5 and a BUN of 21 C-reactive protein was 14.70 Microbiology. No positive cultures 05/26/2017. This patient looks stronger today. She is sitting up in bed eating breakfast. She had no new requests. There are no new problems. White blood cell count remains elevated at 31,400. H&H is 12.4/37.5 and platelets are 683, 000. There are no new positive cultures. Labs been reviewed and medicines have been reviewed. Physical exam. Vital signs. See below Psychiatric oriented 3 General. No apparent distress Face. Symmetrical. No edema of the lips or tongue Neck. Symmetrical. No meningismus Lymphatics. No submandibular cervical supraclavicular and Neurologic. Cranial nerves are intact with some decreased hearing acuity bilaterally. Patient moves all 4 extremities. Gait was not tested Chest. Prolonged incomplete expiration Heart no gallop Abdomen. Nondistended nontender. Positive bowel sounds Extremities nothing to suggest deep venous thrombophlebitis The remainder the physical exam is negative Plan. 05/25/2007 1. Continue present regimen 05/26/2017. 1. See today's note above. 2. Continue present regimen Exam (Progress Note) - Constitutional Vitals: Period Temp Pulse Resp BP Sys/Sarmiento Pulse Ox Last 24 Hr 97.4 F-98.4 F 78-96 16-22 123-153/66-84 89-100 Results - Labs CBC & BMP: 05/26/17 05:08 05/24/17 05:34
[2017-05-26] MEDS: GABAPENTIN 300 MG CAPSULE PO SCH (21:16)
[2017-05-26] MEDS: ASPIRIN CHEW 81 MG TABLET PO SCH (21:16)
[2017-05-27] MEDS: ALBUTEROL/IPRATROPIUM 3 ML NEB RESP TX SCH ×4 (03:05→16:16)
[2017-05-27] MEDS: PHENOL 1.4% THROAT SPRAY 177 ML BOTTLE PO SCH ×5 (03:24→17:44)
[2017-05-27] MEDS: CEFEPIME 1,000 MG in SODIUM CHLORIDE 0.9% 100 ML IV SCH ×2 (03:47→13:06)
[2017-05-27 06:13] LABS: Basophils # 0.1 10*3/uL (0.0-0.2); Basophils % 0.2 % (0.0-0.8); Eosinophils # 0.1 10*3/uL (0.0-0.87); Eosinophils % 0.3 % (0.00-10.9); Hematocrit 39.8 VOL% (35.7-47.0); Hemoglobin 13.1 GM/DL (12.0-16.0); Immature Granulocytes % 2.4 %; Immature Granulocytes Absolute 0.75 #; Lymphocytes # 9.7 10*3/uL (1.4-4.0); Lymphocytes % 30.9 % (21.3-54.2); Mean Corpuscular HGB Conc 32.9 GM/DL (32-36); Mean Corpuscular Hemoglobin 28 PG (27-34); Mean Corpuscular Volume 84.5 FL (87-102); Mean Platelet Volume 9.9 FL (9.6-12.0); Monocytes # 1.9 10*3/uL (0.11-0.8); Monocytes % 6.1 % (1.7-12.7); Neutrophils # 18.9 10*3/uL (1.4-7.4); Neutrophils % 60.1 % (38.7-73.9); Platelet Count 650 T/CUMM (130-400); Red Blood Count 4.71 MC/CUMM (3.8-5.5); Red Cell Distribution Width 15.3 % (9.3-17.3); White Blood Count 31.4 T/CUMM (4-12)
[2017-05-27 07:22] LABS: Lymphocytes 22 % (20-55); Segmented Neutrophils 72 % (50-85); Total Cells Counted 100
[2017-05-27 07:23] LABS: Hypochromasia Slight; Platelet Estimate Increased; Polychromasia 1+; Target Cells 1+
--- NOTE | 2017-05-27 08:54 | XRay Report ---
History: COPD Date: 05/27/2017 Study: Chest x-ray AP portable Comparison exam: May 23, 2017 The cardiac silhouette is upper normal in size. There is no mediastinal mass. There is mild aortic arch calcification. The pulmonary vasculature is not engorged. There is some continued minor strandy subsegmental atelectasis in the lung bases, though there is improved aeration in the right lung base. There is no interval worsening. There is no gross pleural effusion. Osseous structures are similar. Impression: Mildly improved aeration in the right lung base. Otherwise unchanged PROCEDURE INTERPRETED AT [facility] DEPARTMENT OF RADIOLOGY Final Report Signed by: Dr. Darshana Mayfield
--- NOTE | 2017-05-27 08:56 | Pulmonology Progress Note ---
Pulmonary - PN: Subj Interval history: The patient is a 66-year-old white lady that has a long history of cigarette smoking and comes in now with a COPD exacerbation. She may have some mild pneumonia but this is mainly just COPD. She had a fairly good weekend and is doing better. She is moving around a little better and eating. Her cough and congestion are markedly improved. She still has an elevated white count but has been on steroids. Her cultures have been negative. Her chest x-ray is reasonably clear. She feels well and wants to go home today. Exam (Progress Note) - Constitutional Vitals: Period Temp Pulse Resp BP Sys/Sarmiento Pulse Ox Last 24 Hr 96.4 F-98 F 75-95 16-20 107-134/57-81 91-100 Exam: General appearance: normal weight, no distress (She is alert and looks comfortable today. She is in no distress at all. She is sitting up and ate breakfast well.) - Head Head exam: Present: normal inspection, normocephalic - Eye Eye exam: Present: EOMI. Absent: scleral icterus Pupils: Present: NITESH - ENT ENT exam: Present: normal exam - Neck Neck exam: Present: normal inspection. Absent: lymphadenopathy, thyromegaly - Respiratory Respiratory exam: Present: She has fairly good breath sounds bilaterally with prolonged expiration and is moving air a little better. She does not have any rales or wheezing now. Her lungs sound reasonably clear today. - Cardiovascular Cardiovascular exam: Present: regular rate and rhythm. Absent: gallop, systolic murmur - GI/Abdominal GI/Abdominal exam: Present: normal bowel sounds, soft. Absent: organomegaly, tenderness - Extremities Exam Extremities exam: Absent: calf tenderness, edema - Neurological Exam Neurological exam: Present: alert, oriented X3, CN II-XII intact. Absent: motor sensory deficit (She has no definite weakness now) - Psychiatric Psychiatric exam: Present: normal affect, normal mood - Skin Skin exam: Present: warm, dry Results - Labs CBC & BMP: 05/27/17 05:00 05/24/17 05:34 - Diagnostic Findings Procedure: Chest x-ray: image reviewed by me, report reviewed by me (Chest x- ray shows COPD changes but is clear.) Assessment and Plan (1) Acute exacerbation of chronic obstructive pulmonary disease (COPD) Status: Acute Assessment and plan: The patient is a smoker with at least a component of COPD. She says this is her first exacerbation. She has had considerable bronchitis with coughing and wheezing. She has done well with treatment and is much better today. She can go home from my standpoint. Current Visit: Yes (2) History of recent stroke Status: Chronic Assessment and plan: She has improved from a recent stroke and will continue present medicines. Current Visit: Yes (3) Hypertension Status: Chronic Assessment and plan: Her blood pressure tends to be on the high side. She is getting her blood pressure medicines. Her heart rate and blood pressure stable at present. She appears to be doing well medically now. Current Visit: Yes Qualifiers: Hypertension type: essential hypertension Qualified Code(s): I10 - Essential (primary) hypertension (4) LLL pneumonia Status: Acute Assessment and plan: The patient is much better and her chest x-ray is clear now. Current Visit: Yes
[2017-05-27] MEDS: ISOSORBIDE MONONITRATE 60 MG TABLET PO SCH (09:21)
[2017-05-27] MEDS: CLOPIDOGREL 75 MG TABLET PO SCH (09:21)
[2017-05-27] MEDS: predniSONE 20 MG TABLET PO SCH (09:21)
[2017-05-27] MEDS: PARoxetine 20 MG TABLET PO SCH (09:22)
[2017-05-27] MEDS: BENZONATATE 100 MG CAPSULE PO SCH ×2 (09:22→17:44)
[2017-05-27] MEDS: POTASSIUM CHLORIDE 20 MEQ TABLET PO SCH (09:22)
[2017-05-27] MEDS: PANTOPRAZOLE 40 MG TABLET PO SCH (09:22)
[2017-05-27] MEDS: METOPROLOL TARTRATE 50 MG TABLET PO SCH (09:23)
[2017-05-27] MEDS: BUDESONIDE/FORMOTEROL 160-4.5 INHALER 6 GM INH SCH (09:37)
[2017-05-27] MEDS: DICLOFENAC 1% GEL 100 GM TUBE TOP SCH ×3 (09:37→17:44)
[2017-05-27] MEDS: DESITIN 4OZ/NYSTATIN 15 GRAM MIXTURE PASTE TOP SCH (09:43)
[2017-05-27 12:43] VITALS: BP 147/73
--- NOTE | 2017-05-27 16:11 | Internal Med Progress Note ---
Assessment and Plan (1) Hypertension Status: Chronic Current Visit: Yes Qualifiers: Hypertension type: essential hypertension Qualified Code(s): I10 - Essential (primary) hypertension (2) Sinus tachycardia Status: Resolved Current Visit: Yes (3) Persistent cough Status: Resolved Current Visit: Yes (4) LLL pneumonia Status: Acute Current Visit: Yes (5) Leukocytosis Status: Acute Current Visit: Yes Qualifiers: Leukocytosis type: leukemoid reaction Qualified Code(s): D72.823 - Leukemoid reaction (6) Acute exacerbation of chronic obstructive pulmonary disease (COPD) Status: Acute Current Visit: Yes (7) History of recent stroke Status: Chronic Current Visit: Yes Internal Medicine - PN: Subj Interval history: Ms. Mcclendon is a 66 year old female with history of COPD, smoking history, HTN, stroke (multiple and small), osteoarthritis, who presented to ER with cough and shortness of breath. She was admitted to ICU with COPD exacerbation, sinus tachycardia, fluctuating HTN. Cardizem IV infusion was started to slow down sinus tach. She has beta bebe, Metoprolol low dose, as home med. Will be restarted. She reports that she quit smoking a few days ago and has refused a Nicotine patch. She was just hospitalized in [place] and was found to have had a small stroke. Symptoms resolved. Now she is here with severe cough, significantly elevated WBC, COPD exacerbation and LLL pneumonia. Consulting Dr. Johnathan Cox to further evaluate. Blood cultures ordered in ER. Started Cefepime, breathing treatments adjusted, Solumedrol. Adjusting Metoprolol for better heart rate control. Decreasing Solumedrol to help WBC. Increasing Nifedipine. She had a good weekend and is ready to go home. Will discharge today. Exam (Progress Note) - Constitutional Vitals: Period Temp Pulse Resp BP Sys/Sarmiento Pulse Ox Last 24 Hr 97.2 F-98 F 72-95 16-20 107-147/68-81 91-100 Exam: General appearance: no acute distress - Respiratory Respiratory exam: Present: rhonchi (scattered and diffuse) resolved - Cardiovascular Cardiovascular exam: Present: regular rate and rhythm - GI/Abdominal GI/Abdominal exam: Present: normal bowel sounds, soft. Absent: tenderness - Extremities Exam Extremities exam: Absent: edema - Neurological Exam Neurological exam: Present: alert, oriented X3 - Psychiatric Psychiatric exam: Present: normal affect, normal mood - Skin Skin exam: Present: warm, dry Results - Labs CBC & BMP: 05/27/17 05:00 05/24/17 05:34
--- NOTE | 2017-05-27 16:24 | Discharge Summary ---
Hospital Course - Hospital Course Hospital Course: Ms. Mcclendon is a 66 year old female with history of COPD, smoking history, HTN, stroke (multiple and small), osteoarthritis, who presented to ER with cough and shortness of breath. She was admitted to ICU with COPD exacerbation, sinus tachycardia, fluctuating HTN. Cardizem IV infusion was started to slow down sinus tach. She has beta bebe, Metoprolol low dose, as home med. Will be restarted. She reports that she quit smoking a few days ago and would like a nicotine patch at discharge. Discussed smoking cessation. She was just hospitalized in [place] and was found to have had a small stroke. Symptoms resolved. Now she is here with severe cough, significantly elevated WBC, COPD exacerbation and LLL pneumonia. Consulting Dr. Johnathan Cox to further evaluate. Blood cultures ordered in ER. Started Cefepime, breathing treatments adjusted, Solumedrol. Medications have been adjusted during hospital stay. Adjusting Metoprolol for better heart rate control. Decreasing Solumedrol to help WBC. Increasing Nifedipine. She is doing better and will be discharged to home with home health for PT/OT. She will be tested for home oxygen need before discharge today. Also, she needs nebulizer at home. Diagnosis - Discharge Diagnosis (1) Hypertension Status: Chronic (2) Sinus tachycardia Status: Resolved (3) Persistent cough Status: Resolved (4) LLL pneumonia Status: Acute (5) Leukocytosis Status: Acute (6) Acute exacerbation of chronic obstructive pulmonary disease (COPD) Status: Acute (7) History of recent stroke Status: Chronic Discharge Plan - Discharge Data Disposition: Home Health Service Condition at Discharge: Stable Discharge Diet: regular diet Activity: as per physical therapy, increase activity as tolerated - Discharge Medications New Benzonatate [Tessalon] 100 mg PO TID #15 capsule Budesonide/Formoterol 160-4.5 [Symbicort 160-4.5] 2 puff INH BID #1 inhaler Metoprolol Tartrate Tab [Lopressor Tab] 50 mg PO BID #60 tablet Nicotine 14 mg/24 Hr Patch [Nicoderm CQ 14 mg/24 hr Patch] 1 patch TRANSDERM DAILY PRN #30 patch PRN Reason: Nicotine Withdrawal NIFEdipine XL TAB [Procardia Xl] 60 mg PO DAILY #30 tablet Phenol 1.4% Throat [place] [Chloraseptic [place]] 5 spray PO Q4HR bottle predniSONE [Prednisone] 10 mg PO AC BREAKFAST #7 tab.ds.pk predniSONE TAB [PredniSONE] 40 mg PO DAILY #5 tablet Albuterol/Ipratropium Neb [Duoneb] 3 ml RESP TX RT Q4H #120 Isosorbide Mononitrate [Imdur] 60 mg PO DAILY #30 tablet Potassium Chloride Cap/Tab [K Dur] 20 meq PO DAILY #30 tablet Continue PARoxetine [Paxil] 0.5 mg PO DAILY Aspirin Chew Tab 81 mg PO BEDTIME Oxycodone HCl/Acetaminophen [Oxycodone-Acetaminophen 5-325] 1 each PO TID PRN PRN Reason: Pain Nitroglycerin Sl Tab [Nitrostat] 0.4 mg SL Q5M PRN PRN Reason: Chest Pain Gabapentin 300 mg PO BEDTIME Diclofenac 1% Gel [Voltaren 1% Gel] 1 applic TOP QID Clopidogrel Bisulfate [Clopidogrel] 75 mg PO BEDTIME Atorvastatin [Lipitor] 40 mg PO BEDTIME Acetaminophen Tab [Tylenol Tab] 325 mg PO Q6H PRN PRN Reason: Pain Clorazepate Dipotassium 3.75 mg PO DAILY PRN PRN Reason: Anxiety Discontinued NIFEdipine [Nifedipine ER] 30 mg PO DAILY Isosorbide Dinitrate 30 mg PO DAILY Cyclobenzaprine [Flexeril] 10 mg PO TID PRN PRN Reason: Muscle Pain Metoprolol Tartrate Tab [Lopressor Tab] 25 mg PO BID - Follow Up or Referral Follow Up: Yolie Cox DO [Physician] - Johnathan Cox MD [Physician] - - Forms/Instructions Additional Discharge Instructions: Follow up with Dr. Danny Cox within 1-2 weeks in clinic. Follow up with Dr. Melisa Cox in clinic within 3-4 weeks. Please explain to her that the 40 mg dose Prednisone to be taken first until finished, then follow with the 10 mg dose each day until gone. Use the Bactroban to nostrils twice daily for 10 days and take Doxycycline 100 mg bid for 10 days (MRSA). Exam - Constitutional Vitals: Period Temp Pulse Resp BP Sys/Sarmiento Pulse Ox Last 24 Hr 97.2 F-98 F 72-95 16-20 107-147/68-81 91-100 Exam: General appearance: no acute distress - Respiratory Respiratory exam: Present: rhonchi (scattered and diffuse) resolved - Cardiovascular Cardiovascular exam: Present: regular rate and rhythm - GI/Abdominal GI/Abdominal exam: Present: normal bowel sounds, soft. Absent: tenderness - Extremities Exam Extremities exam: Absent: edema - Neurological Exam Neurological exam: Present: alert, oriented X3 - Psychiatric Psychiatric exam: Present: normal affect, normal mood - Skin Skin exam: Present: warm, dry Discharge Results Labs on day of discharge: Labs from last 24 hours 05/27/17 05:00 WBC 31.4 H RBC 4.71 Hgb 13.1 Hct 39.8 MCV 84.5 L MCH 28 MCHC 32.9 RDW 15.3 Plt Count 650 H MPV 9.9 Neut % (Auto) 60.1 Lymph % (Auto) 30.9 [place] % (Auto) 6.1 Eos % (Auto) 0.3 Baso % (Auto) 0.2 Neut # (Auto) 18.9 H Lymph # (Auto) 9.7 H [place] # (Auto) 1.9 H Eos # (Auto) 0.1 Baso # (Auto) 0.1 Total Counted 100 Immature Gran % 2.4 Nucleated RBC % 0.0 Immature Gran # 0.75 Segmented Neutrophils 72 Lymphocytes 22 Monocytes 6 Nucleated RBCs # 0.00 Platelet Estimate Increased Immature Plt Fraction 0.0 Polychromasia 1+ Hypochromasia Slight Target Cells 1+ DS: Provider Date of admission: 05/20/17 16:40 Primary care physician: . No PCP Attending physician on admission: Yolie Cox DO Consults: 05/20/17 18:29 Consult to Dietitian [CONS] Routine Reason for Dietitian: Other 05/20/17 19:39 Consult to Physician [CONS] Routine Comment: COPD exacerbation; severe cough; elevated WBC Consulting Provider: Johnathan Cox Person Notified: MD quiroz 05/21/17 19:02 Consult to Dietitian [CONS] Routine Reason for Dietitian: Dietary Consult Consult Comment: protein requirements 05/23/17 18:01 Consult to Occupational Therapy [CONS] Routine Reason for Occupational Therapy: Evaluate and Treat Consult to Physical Therapy [CONS] Routine Reason for Physical Therapy: Evaluate and Treat 05/27/17 15:27 Consult to Case Mgmt/Social Srvs [CONS] Routine Reason for Case Mgmt/Social Srvs: Home Health Consult Comment: PT NEBULIZER AND HOME O2 Discharging clinician: Yolie E Kenny, DO Expected date of discharge: 05/27/17
== END 2017-05-27 18:54 | disposition home health service (06) | DRG 190 ==
LOC: EDUNIT# → N.ED 15:05 → N.EDINP 16:40 → N.ICU 17:06 → N.5E 05-23 14:39
PROVIDERS: ADMIT Internal Medicine; ATTEND Internal Medicine

== ENCOUNTER 2018-12-20 13:19 | Inpatient (IN) ==
[2018-12-20 14:13] LABS: Basophils % 0.4 % (0.0-0.8); Eosinophils # 0.3 10*3/uL (0.0-0.87); Eosinophils % 2.6 % (0.00-10.9); Hematocrit 40.5 VOL% (35.7-47.0); Hemoglobin 12.4 GM/DL (12.0-16.0); Immature Granulocytes % 0.3 %; Immature Granulocytes Absolute 0.03 #; Lymphocytes # 3.1 10*3/uL (1.4-4.0); Lymphocytes % 28.8 % (21.3-54.2); Mean Corpuscular HGB Conc 30.6 GM/DL (32-36); Mean Corpuscular Hemoglobin 26 PG (27-34); Mean Platelet Volume 11.2 FL (9.6-12.0); Monocytes # 0.6 10*3/uL (0.11-0.8); Monocytes % 5.5 % (1.7-12.7); Neutrophils # 6.6 10*3/uL (1.4-7.4); Neutrophils % 62.4 % (38.7-73.9); Platelet Count 349 T/CUMM (130-400); Red Blood Count 4.82 MC/CUMM (3.8-5.5); Red Cell Distribution Width 15.1 % (9.3-17.3); White Blood Count 10.6 T/CUMM (4-12)
[2018-12-20 14:27] LABS: PT Patient Result 10.9 SECS; Partial Thromboplastin Time 26.8 SECS (0-40)
[2018-12-20 14:38] LABS: Alanine Aminotransferase 9 U/L (13-56); Albumin 3.2 G/DL (3.4-5.0); Alkaline Phosphatase 60 U/L (45-117); Aspartate Amino Transferase 10 U/L (0-37); Bilirubin,Total < 0.39 MG/DL (0.2-1.0); Blood Urea Nitrogen 11 MG/DL (7-18); Calcium 8.8 MG/DL (8.5-10.1); Glucose 100 MG/DL (74-106); Osmolality,Calculated 279.3 MOS/KG (273-304); Potassium 3.9 MMOL/L (3.5-5.1); Sodium 141 MMOL/L (136-145); Total Protein 7.4 G/DL (6.4-8.3)
[2018-12-20 16:49] LABS: Apearance,Urine Slightly Hazy (Clear); Bilirubin,Urine Negative (Negative); Blood, Urine Small mg/dL (Negative); Glucose,Urine (UA) Negative (Negative); Ketones,Urine Negative (Negative); Nitrite,Urine Positive (Negative); Protein,Urine Negative; RBC,Urine 1 /HPF (0-4); Squamous Epithelial Cell,Urine Occasional /HPF (0-10); Urine Color Yellow (Yellow); Urine Specific Gravity 1.011 (1.001-1.035); Urine Urobilinogen < 2.0 EU/DL (0.2-1.0); WBC,Urine 13 /HPF (0-6)
[2018-12-20] MEDS ORDERED: ONDANSETRON 4 MG/2 ML VIAL IV PRN (19:50)
[2018-12-20] MEDS: SODIUM CHLORIDE 0.45% 1,000 ML IV SCH (21:42)
[2018-12-20] MEDS: ENOXAPARIN 40 MG/0.4 ML SYRINGE SUBCUT SCH (21:42)
[2018-12-20] MEDS: DOCUSATE SODIUM 100 MG CAPSULE PO SCH (21:42)
[2018-12-21] MEDS ORDERED: cloNIDine 0.1 MG TABLET PO ONE (04:00)
[2018-12-21] MEDS: PANTOPRAZOLE 40 MG TABLET PO SCH (08:50)
[2018-12-21] MEDS: DOCUSATE SODIUM 100 MG CAPSULE PO SCH ×2 (08:50→21:13)
[2018-12-21] MEDS: SODIUM CHLORIDE 0.45% 1,000 ML IV SCH (08:50)
[2018-12-21] MEDS: ACETAMINOPHEN 325 MG TABLET PO PRN (09:00)
[2018-12-21] MEDS: PROPRANOLOL 40 MG TABLET PO SCH (12:44)
[2018-12-21] MEDS ORDERED: CYCLOBENZAPRINE 10 MG TABLET PO PRN (14:13)
[2018-12-21] MEDS: ASPIRIN EC 325 MG TABLET PO SCH (14:36)
[2018-12-21] MEDS: PARoxetine 20 MG TABLET PO SCH (14:36)
[2018-12-21] MEDS: cloNIDine 0.1 MG TABLET PO SCH ×2 (14:37→21:14)
[2018-12-21] MEDS: cefTRIAXone 1,000 MG in SYRINGE 1 EACH IV SCH (14:37)
[2018-12-21] MEDS: SODIUM CHLOR 0.45% KCL 20 MEQ 20 MEQ/1,000 ML BAG IV SCH (16:43)
[2018-12-21] MEDS ORDERED: LOSARTAN 50 MG TABLET PO SCH (21:00)
[2018-12-21] MEDS: MECLIZINE 25 MG TABLET PO SCH (21:13)
[2018-12-21] MEDS: GABAPENTIN 300 MG CAPSULE PO SCH (21:13)
[2018-12-21] MEDS: POTASSIUM CHLORIDE 20 MEQ TABLET PO SCH (21:13)
[2018-12-21] MEDS: ENOXAPARIN 40 MG/0.4 ML SYRINGE SUBCUT SCH (21:14)
[2018-12-22] MEDS: SODIUM CHLOR 0.45% KCL 20 MEQ 20 MEQ/1,000 ML BAG IV SCH ×2 (05:26→23:22)
[2018-12-22] MEDS: ACETAMINOPHEN 325 MG TABLET PO PRN (05:27)
[2018-12-22 05:28] LABS: Basophils # 0.1 10*3/uL (0.0-0.2); Basophils % 0.4 % (0.0-0.8); Eosinophils # 0.3 10*3/uL (0.0-0.87); Eosinophils % 2.7 % (0.00-10.9); Hematocrit 38.9 VOL% (35.7-47.0); Hemoglobin 12.1 GM/DL (12.0-16.0); Immature Granulocytes % 0.3 %; Immature Granulocytes Absolute 0.04 #; Lymphocytes # 4.3 10*3/uL (1.4-4.0); Lymphocytes % 34.2 % (21.3-54.2); Mean Corpuscular HGB Conc 31.1 GM/DL (32-36); Mean Corpuscular Hemoglobin 26 PG (27-34); Mean Corpuscular Volume 83.1 FL (87-102); Mean Platelet Volume 11.5 FL (9.6-12.0); Monocytes # 0.8 10*3/uL (0.11-0.8); Monocytes % 6.3 % (1.7-12.7); Neutrophils % 56.1 % (38.7-73.9); Platelet Count 349 T/CUMM (130-400); Red Blood Count 4.68 MC/CUMM (3.8-5.5); Red Cell Distribution Width 15.1 % (9.3-17.3); White Blood Count 12.4 T/CUMM (4-12)
[2018-12-22] MEDS: BUDESONIDE/FORMOTEROL 160-4.5 INHALER 6 GM INH SCH ×2 (05:30→09:33)
[2018-12-22 05:55] LABS: Alanine Aminotransferase < 9 U/L (13-56); Albumin 2.9 G/DL (3.4-5.0); Alkaline Phosphatase 58 U/L (45-117); Aspartate Amino Transferase 14 U/L (0-37); Bilirubin,Total < 0.39 MG/DL (0.2-1.0); Blood Urea Nitrogen 11 MG/DL (7-18); Calcium 8.5 MG/DL (8.5-10.1); Cholesterol 190 MG/DL (50-200); Free T4 (Free Thyroxine) 1.12 NG/DL (0.76-1.46); Glucose 102 MG/DL (74-106); HDL Cholesterol 40 MG/DL (40-60); Osmolality,Calculated 273.7 MOS/KG (273-304); Potassium 3.7 MMOL/L (3.5-5.1); Risk Ratio 4.75; Sodium 138 MMOL/L (136-145); Total Protein 6.7 G/DL (6.4-8.3); Triglycerides 233 MG/DL (2-150); VLDL CHOLESTEROL 46.6 MG/DL
[2018-12-22 06:43] LABS: Sedimentation Rate-Westergren 18 MM/HR (0-30)
[2018-12-22] MEDS ORDERED: PROPRANOLOL HCL 80 MG PO SCH (09:00)
[2018-12-22] MEDS ORDERED: ALPRAZolam 0.25 MG TABLET PO ONE (09:25)
[2018-12-22] MEDS: PARoxetine 20 MG TABLET PO SCH (09:32)
[2018-12-22] MEDS: ASPIRIN EC 325 MG TABLET PO SCH (09:32)
[2018-12-22] MEDS: PROPRANOLOL 40 MG TABLET PO SCH (09:32)
[2018-12-22] MEDS: ESTRADIOL 1 MG TABLET PO SCH (09:33)
[2018-12-22] MEDS: cloNIDine 0.1 MG TABLET PO SCH ×3 (09:33→21:44)
[2018-12-22] MEDS: DOCUSATE SODIUM 100 MG CAPSULE PO SCH ×2 (09:33→21:44)
[2018-12-22] MEDS: FENOFIBRATE 160 MG TABLET PO SCH (09:33)
[2018-12-22] MEDS: PANTOPRAZOLE 40 MG TABLET PO SCH (09:33)
[2018-12-22] MEDS: POTASSIUM CHLORIDE 20 MEQ TABLET PO SCH ×2 (09:33→21:45)
[2018-12-22] MEDS: cefTRIAXone 1,000 MG in SYRINGE 1 EACH IV SCH (17:06)
[2018-12-22] MEDS: ALBUTEROL/IPRATROPIUM 3 ML NEB RESP TX SCH (19:34)
[2018-12-22] MEDS: GABAPENTIN 300 MG CAPSULE PO SCH (21:44)
[2018-12-22] MEDS: MECLIZINE 25 MG TABLET PO SCH (21:44)
[2018-12-22] MEDS: LOSARTAN 50 MG TABLET PO SCH (21:45)
[2018-12-22] MEDS: ENOXAPARIN 40 MG/0.4 ML SYRINGE SUBCUT SCH (21:45)
[2018-12-23] MEDS: BUDESONIDE 0.25 MG/2 ML NEB RESP TX SCH ×3 (00:20→19:34)
[2018-12-23] MEDS: ALBUTEROL/IPRATROPIUM 3 ML NEB RESP TX SCH ×4 (00:20→19:34)
[2018-12-23 00:47] LABS: Troponin I < 0.015 NG/ML (0.00-0.045)
[2018-12-23 05:16] LABS: Basophils % 0.2 % (0.0-0.8); Eosinophils # 0.4 10*3/uL (0.0-0.87); Eosinophils % 3.1 % (0.00-10.9); Hematocrit 39.5 VOL% (35.7-47.0); Hemoglobin 12.2 GM/DL (12.0-16.0); Immature Granulocytes % 0.2 %; Immature Granulocytes Absolute 0.03 #; Lymphocytes % 38.6 % (21.3-54.2); Mean Corpuscular HGB Conc 30.9 GM/DL (32-36); Mean Corpuscular Hemoglobin 26 PG (27-34); Mean Corpuscular Volume 82.6 FL (87-102); Mean Platelet Volume 11.6 FL (9.6-12.0); Monocytes # 0.7 10*3/uL (0.11-0.8); Monocytes % 5.5 % (1.7-12.7); Neutrophils # 6.8 10*3/uL (1.4-7.4); Neutrophils % 52.4 % (38.7-73.9); Platelet Count 359 T/CUMM (130-400); Red Blood Count 4.78 MC/CUMM (3.8-5.5)
[2018-12-23 05:44] LABS: Calcium 8.6 MG/DL (8.5-10.1); Osmolality,Calculated 272.8 MOS/KG (273-304); Potassium 4.8 MMOL/L (3.5-5.1)
[2018-12-23] MEDS: DOCUSATE SODIUM 100 MG CAPSULE PO SCH ×2 (09:17→22:29)
[2018-12-23] MEDS: FENOFIBRATE 160 MG TABLET PO SCH (09:17)
[2018-12-23] MEDS: ESTRADIOL 1 MG TABLET PO SCH (09:17)
[2018-12-23] MEDS: cloNIDine 0.1 MG TABLET PO SCH ×3 (09:17→21:20)
[2018-12-23] MEDS: CLOPIDOGREL 75 MG TABLET PO SCH (09:17)
[2018-12-23] MEDS: PARoxetine 20 MG TABLET PO SCH (09:17)
[2018-12-23] MEDS: LOSARTAN 50 MG TABLET PO SCH ×2 (09:18→21:20)
[2018-12-23] MEDS: ASPIRIN EC 325 MG TABLET PO SCH (09:18)
[2018-12-23] MEDS: POTASSIUM CHLORIDE 20 MEQ TABLET PO SCH ×2 (09:18→21:20)
[2018-12-23] MEDS: ATORVASTATIN 10 MG TABLET PO SCH (09:18)
[2018-12-23] MEDS: PROPRANOLOL 40 MG TABLET PO SCH (09:18)
[2018-12-23] MEDS: PANTOPRAZOLE 40 MG TABLET PO SCH (09:18)
[2018-12-23] MEDS: NICOTINE 14 MG/24 HR PATCH TRANSDERM SCH (09:19)
[2018-12-23] MEDS: cefTRIAXone 1,000 MG in SYRINGE 1 EACH IV SCH (16:59)
[2018-12-23] MEDS: SODIUM CHLOR 0.45% KCL 20 MEQ 20 MEQ/1,000 ML BAG IV SCH (17:00)
[2018-12-23] MEDS: GABAPENTIN 300 MG CAPSULE PO SCH (21:20)
[2018-12-23] MEDS: MECLIZINE 25 MG TABLET PO SCH (21:20)
[2018-12-23] MEDS: ENOXAPARIN 40 MG/0.4 ML SYRINGE SUBCUT SCH (21:20)
[2018-12-23] MEDS: methylPREDNISolone SOD SUC 40 MG/1 ML VIAL IV SCH (23:47)
[2018-12-24] MEDS: ALBUTEROL/IPRATROPIUM 3 ML NEB RESP TX SCH ×4 (00:40→19:52)
[2018-12-24] MEDS: SODIUM CHLOR 0.45% KCL 20 MEQ 20 MEQ/1,000 ML BAG IV SCH ×2 (02:09→15:25)
[2018-12-24 05:13] LABS: Basophils % 0.4 % (0.0-0.8); Eosinophils % 0.3 % (0.00-10.9); Hematocrit 42.4 VOL% (35.7-47.0); Hemoglobin 13.2 GM/DL (12.0-16.0); Immature Granulocytes % 0.6 %; Immature Granulocytes Absolute 0.06 #; Lymphocytes # 1.8 10*3/uL (1.4-4.0); Lymphocytes % 16.6 % (21.3-54.2); Mean Corpuscular HGB Conc 31.1 GM/DL (32-36); Mean Corpuscular Hemoglobin 26 PG (27-34); Mean Platelet Volume 11.1 FL (9.6-12.0); Monocytes # 0.1 10*3/uL (0.11-0.8); Monocytes % 1.1 % (1.7-12.7); Neutrophils # 8.8 10*3/uL (1.4-7.4); Platelet Count 377 T/CUMM (130-400); Red Blood Count 5.17 MC/CUMM (3.8-5.5); White Blood Count 10.8 T/CUMM (4-12)
[2018-12-24] MEDS: BUDESONIDE 0.25 MG/2 ML NEB RESP TX SCH ×2 (07:21→19:52)
[2018-12-24] MEDS: NICOTINE 14 MG/24 HR PATCH TRANSDERM SCH (09:28)
[2018-12-24] MEDS: FENOFIBRATE 160 MG TABLET PO SCH (09:29)
[2018-12-24] MEDS: CLOPIDOGREL 75 MG TABLET PO SCH (09:29)
[2018-12-24] MEDS: ESTRADIOL 1 MG TABLET PO SCH (09:29)
[2018-12-24] MEDS: PROPRANOLOL 40 MG TABLET PO SCH (09:29)
[2018-12-24] MEDS: ASPIRIN EC 325 MG TABLET PO SCH (09:30)
[2018-12-24] MEDS: PARoxetine 20 MG TABLET PO SCH (09:30)
[2018-12-24] MEDS: DOCUSATE SODIUM 100 MG CAPSULE PO SCH ×2 (09:30→21:17)
[2018-12-24] MEDS: LOSARTAN 50 MG TABLET PO SCH ×2 (09:30→21:17)
[2018-12-24] MEDS: cloNIDine 0.1 MG TABLET PO SCH ×3 (09:30→21:17)
[2018-12-24] MEDS: PANTOPRAZOLE 40 MG TABLET PO SCH (09:30)
[2018-12-24] MEDS: POTASSIUM CHLORIDE 20 MEQ TABLET PO SCH ×2 (09:30→21:17)
[2018-12-24] MEDS: methylPREDNISolone SOD SUC 40 MG/1 ML VIAL IV SCH ×2 (15:27→23:33)
[2018-12-24] MEDS: cefTRIAXone 1,000 MG in SYRINGE 1 EACH IV SCH (16:27)
[2018-12-24] MEDS: GABAPENTIN 300 MG CAPSULE PO SCH (21:17)
[2018-12-24] MEDS: MECLIZINE 25 MG TABLET PO SCH (21:17)
[2018-12-24] MEDS: ENOXAPARIN 40 MG/0.4 ML SYRINGE SUBCUT SCH (21:20)
[2018-12-25] MEDS: ALBUTEROL/IPRATROPIUM 3 ML NEB RESP TX SCH ×3 (00:46→16:22)
[2018-12-25] MEDS: SODIUM CHLOR 0.45% KCL 20 MEQ 20 MEQ/1,000 ML BAG IV SCH (04:25)
[2018-12-25 04:31] LABS: Basophils % 0.4 % (0.0-0.8); Hematocrit 41.2 VOL% (35.7-47.0); Hemoglobin 13.1 GM/DL (12.0-16.0); Immature Granulocytes % 0.6 %; Immature Granulocytes Absolute 0.06 #; Lymphocytes # 2.4 10*3/uL (1.4-4.0); Lymphocytes % 22.2 % (21.3-54.2); Mean Corpuscular HGB Conc 31.8 GM/DL (32-36); Mean Corpuscular Hemoglobin 26 PG (27-34); Mean Corpuscular Volume 82.6 FL (87-102); Mean Platelet Volume 11.3 FL (9.6-12.0); Monocytes # 0.2 10*3/uL (0.11-0.8); Monocytes % 2.2 % (1.7-12.7); Neutrophils # 8.1 10*3/uL (1.4-7.4); Neutrophils % 74.6 % (38.7-73.9); Platelet Count 400 T/CUMM (130-400); Red Blood Count 4.99 MC/CUMM (3.8-5.5); Red Cell Distribution Width 14.8 % (9.3-17.3); White Blood Count 10.8 T/CUMM (4-12)
[2018-12-25] MEDS: BUDESONIDE 0.25 MG/2 ML NEB RESP TX SCH (07:45)
[2018-12-25] MEDS: cloNIDine 0.1 MG TABLET PO SCH ×2 (10:29→19:04)
[2018-12-25] MEDS: POTASSIUM CHLORIDE 20 MEQ TABLET PO SCH (10:29)
[2018-12-25] MEDS: FENOFIBRATE 160 MG TABLET PO SCH (10:29)
[2018-12-25] MEDS: PROPRANOLOL 40 MG TABLET PO SCH (10:29)
[2018-12-25] MEDS: DOCUSATE SODIUM 100 MG CAPSULE PO SCH (10:29)
[2018-12-25] MEDS: ASPIRIN EC 325 MG TABLET PO SCH (10:29)
[2018-12-25] MEDS: NICOTINE 14 MG/24 HR PATCH TRANSDERM SCH (10:30)
[2018-12-25] MEDS: PARoxetine 20 MG TABLET PO SCH (10:30)
[2018-12-25] MEDS: LOSARTAN 50 MG TABLET PO SCH (10:30)
[2018-12-25] MEDS: ATORVASTATIN 10 MG TABLET PO SCH (10:30)
[2018-12-25] MEDS: CLOPIDOGREL 75 MG TABLET PO SCH (10:34)
[2018-12-25] MEDS: PANTOPRAZOLE 40 MG TABLET PO SCH (10:34)
[2018-12-25 15:50] VITALS: BP 202/87
[2018-12-25] MEDS: methylPREDNISolone SOD SUC 40 MG/1 ML VIAL IV SCH (19:05)
[2018-12-25] MEDS: cefTRIAXone 1,000 MG in SYRINGE 1 EACH IV SCH (19:05)
[2018-12-25] MEDS: ESTRADIOL 1 MG TABLET PO SCH (19:05)
== END 2018-12-25 18:55 | DRG 65 ==
LOC: N.ED 13:19 → N.EDINP 18:18 → N.4E 19:49
PROVIDERS: ADMIT Internal Medicine; ATTEND Internal Medicine

== ENCOUNTER 2018-12-30 22:11 | Inpatient (IN) ==
[2018-12-30] MEDS ORDERED: SODIUM CHLORIDE 0.9% 1,000 ML IV STA (22:53)
[2018-12-30 23:28] LABS: Basophils # 0.1 10*3/uL (0.0-0.2); Basophils % 0.5 % (0.0-0.8); Eosinophils % 0.2 % (0.00-10.9); Hematocrit 46.1 VOL% (35.7-47.0); Hemoglobin 14.4 GM/DL (12.0-16.0); Immature Granulocytes % 0.7 %; Immature Granulocytes Absolute 0.11 #; Lymphocytes # 4.3 10*3/uL (1.4-4.0); Lymphocytes % 25.9 % (21.3-54.2); Mean Corpuscular HGB Conc 31.2 GM/DL (32-36); Mean Corpuscular Hemoglobin 26 PG (27-34); Mean Corpuscular Volume 83.4 FL (87-102); Mean Platelet Volume 11.4 FL (9.6-12.0); Monocytes # 1.2 10*3/uL (0.11-0.8); Monocytes % 7.2 % (1.7-12.7); Neutrophils # 10.8 10*3/uL (1.4-7.4); Neutrophils % 65.5 % (38.7-73.9); Platelet Count 491 T/CUMM (130-400); Red Blood Count 5.53 MC/CUMM (3.8-5.5); White Blood Count 16.4 T/CUMM (4-12)
[2018-12-30 23:42] LABS: INR 1.1; PT Patient Result 11.4 SECS
[2018-12-30 23:48] LABS: Albumin 3.7 G/DL (3.4-5.0); Bilirubin,Total 0.4 MG/DL (0.2-1.0); Calcium 9.8 MG/DL (8.5-10.1); Osmolality,Calculated 291.5 MOS/KG (273-304); Potassium 4.4 MMOL/L (3.5-5.1); Total Protein 8.3 G/DL (6.4-8.3)
[2018-12-30 23:52] LABS: Troponin I 0.032 NG/ML (0.00-0.045)
[2018-12-31 01:37] LABS: Apearance,Urine CLOUDY (Clear); Bilirubin,Urine Negative (Negative); Blood, Urine Negative (Negative); Glucose,Urine (UA) Negative (Negative); Ketones,Urine Negative (Negative); Mucus,Urine Occasional /LPF (Occasional); Nitrite,Urine Negative (Negative); Protein,Urine Negative; RBC,Urine 1 /HPF (0-4); Squamous Epithelial Cell,Urine Occasional /HPF (0-10); Urine Color Yellow (Yellow); Urine Specific Gravity 1.019 (1.001-1.035); Urine Urobilinogen < 2.0 EU/DL (0.2-1.0); WBC,Urine 4 /HPF (0-6)
[2018-12-31] MEDS ORDERED: ACETAMINOPHEN 325 MG TABLET PO PRN (02:20)
[2018-12-31] MEDS ORDERED: ONDANSETRON 4 MG/2 ML VIAL IV PRN (02:20)
[2018-12-31] MEDS: SODIUM CHLORIDE 0.45% 1,000 ML IV SCH ×3 (03:24→21:05)
[2018-12-31] MEDS ORDERED: NITROGLYCERIN SL 0.4 MG TABLET SL PRN (07:49)
[2018-12-31] MEDS: DOCUSATE SODIUM 100 MG CAPSULE PO SCH ×2 (08:52→21:06)
[2018-12-31] MEDS: PANTOPRAZOLE 40 MG TABLET PO SCH (08:52)
[2018-12-31] MEDS: ATORVASTATIN 10 MG TABLET PO SCH (08:53)
[2018-12-31] MEDS: FENOFIBRATE 160 MG TABLET PO SCH (08:53)
[2018-12-31] MEDS: methylPREDNISolone SOD SUC 40 MG/1 ML VIAL IV SCH ×2 (08:53→21:05)
[2018-12-31] MEDS: ASPIRIN EC 325 MG TABLET PO SCH (08:53)
[2018-12-31] MEDS: NICOTINE 14 MG/24 HR PATCH TRANSDERM SCH (08:53)
[2018-12-31] MEDS: PROPRANOLOL 40 MG TABLET PO SCH (08:53)
[2018-12-31] MEDS: PARoxetine 20 MG TABLET PO SCH (08:53)
[2018-12-31] MEDS: cefTRIAXone 500 MG in SYRINGE 1 EACH IV SCH (08:54)
[2018-12-31] MEDS ORDERED: PANTOPRAZOLE 40 MG TABLET PO SCH (09:00)
[2018-12-31] MEDS ORDERED: DOCUSATE SODIUM 100 MG CAPSULE PO SCH (09:00)
[2018-12-31] MEDS ORDERED: CLOPIDOGREL 75 MG TABLET PO SCH (09:00)
[2018-12-31] MEDS: ALBUTEROL/IPRATROPIUM 3 ML NEB RESP TX SCH ×2 (16:47→19:03)
[2018-12-31] MEDS: GABAPENTIN 300 MG CAPSULE PO SCH (21:06)
[2018-12-31] MEDS: MECLIZINE 25 MG TABLET PO SCH (21:06)
[2019-01-01] MEDS: ALBUTEROL/IPRATROPIUM 3 ML NEB RESP TX SCH ×4 (00:13→19:23)
[2019-01-01] MEDS ORDERED: LOSARTAN 50 MG TABLET PO ONE (05:09)
[2019-01-01] MEDS ORDERED: cloNIDine 0.1 MG TABLET PO ONE (05:10)
[2019-01-01] MEDS: SODIUM CHLORIDE 0.45% 1,000 ML IV SCH ×3 (07:37→20:00)
[2019-01-01] MEDS: ASPIRIN EC 325 MG TABLET PO SCH (09:16)
[2019-01-01] MEDS: NICOTINE 14 MG/24 HR PATCH TRANSDERM SCH (09:17)
[2019-01-01] MEDS: FENOFIBRATE 160 MG TABLET PO SCH (09:17)
[2019-01-01] MEDS: DOCUSATE SODIUM 100 MG CAPSULE PO SCH ×2 (09:17→21:58)
[2019-01-01] MEDS: PANTOPRAZOLE 40 MG TABLET PO SCH (09:17)
[2019-01-01] MEDS: PARoxetine 20 MG TABLET PO SCH (09:17)
[2019-01-01] MEDS: methylPREDNISolone SOD SUC 40 MG/1 ML VIAL IV SCH ×2 (09:17→21:57)
[2019-01-01] MEDS: PROPRANOLOL 40 MG TABLET PO SCH (09:17)
[2019-01-01] MEDS: cefTRIAXone 500 MG in SYRINGE 1 EACH IV SCH (09:23)
[2019-01-01] MEDS: LOSARTAN 50 MG TABLET PO SCH (21:57)
[2019-01-01] MEDS: cloNIDine 0.1 MG TABLET PO SCH (21:57)
[2019-01-01] MEDS: MECLIZINE 25 MG TABLET PO SCH (21:58)
[2019-01-01] MEDS: GABAPENTIN 300 MG CAPSULE PO SCH (21:58)
[2019-01-02] MEDS: ALBUTEROL/IPRATROPIUM 3 ML NEB RESP TX SCH ×2 (01:52→06:47)
[2019-01-02 04:21] LABS: Basophils # 0.1 10*3/uL (0.0-0.2); Basophils % 0.2 % (0.0-0.8); Eosinophils % 0.1 % (0.00-10.9); Hematocrit 40.8 VOL% (35.7-47.0); Hemoglobin 12.6 GM/DL (12.0-16.0); Immature Granulocytes % 0.7 %; Immature Granulocytes Absolute 0.14 #; Lymphocytes # 3.9 10*3/uL (1.4-4.0); Lymphocytes % 18.6 % (21.3-54.2); Mean Corpuscular HGB Conc 30.9 GM/DL (32-36); Mean Corpuscular Hemoglobin 26 PG (27-34); Mean Corpuscular Volume 83.6 FL (87-102); Mean Platelet Volume 11.6 FL (9.6-12.0); Monocytes # 0.9 10*3/uL (0.11-0.8); Monocytes % 4.4 % (1.7-12.7); Neutrophils # 15.8 10*3/uL (1.4-7.4); Platelet Count 421 T/CUMM (130-400); Red Blood Count 4.88 MC/CUMM (3.8-5.5); Red Cell Distribution Width 14.7 % (9.3-17.3); White Blood Count 20.7 T/CUMM (4-12)
[2019-01-02 04:49] LABS: Calcium 8.7 MG/DL (8.5-10.1); Osmolality,Calculated 280.5 MOS/KG (273-304); Potassium 3.9 MMOL/L (3.5-5.1)
[2019-01-02 04:55] LABS: Eosinophils 1 % (0-10); Lymphocytes 18 % (20-55); Segmented Neutrophils 81 % (50-85); Total Cells Counted 100
[2019-01-02 04:56] LABS: Platelet Estimate Normal
[2019-01-02 05:00] LABS: Polychromasia Few
[2019-01-02] MEDS: NICOTINE 14 MG/24 HR PATCH TRANSDERM SCH (08:44)
[2019-01-02] MEDS: PANTOPRAZOLE 40 MG TABLET PO SCH (08:46)
[2019-01-02] MEDS: PROPRANOLOL 40 MG TABLET PO SCH (08:46)
[2019-01-02] MEDS: cloNIDine 0.1 MG TABLET PO SCH (08:46)
[2019-01-02] MEDS: PARoxetine 20 MG TABLET PO SCH (08:47)
[2019-01-02] MEDS: ATORVASTATIN 10 MG TABLET PO SCH (08:47)
[2019-01-02] MEDS: ASPIRIN EC 325 MG TABLET PO SCH (08:47)
[2019-01-02] MEDS: LOSARTAN 50 MG TABLET PO SCH (08:47)
[2019-01-02] MEDS: DOCUSATE SODIUM 100 MG CAPSULE PO SCH (08:47)
[2019-01-02] MEDS: methylPREDNISolone SOD SUC 40 MG/1 ML VIAL IV SCH (08:48)
[2019-01-02] MEDS: FENOFIBRATE 160 MG TABLET PO SCH (08:48)
[2019-01-02] MEDS: cefTRIAXone 500 MG in SYRINGE 1 EACH IV SCH (08:51)
[2019-01-02] MEDS ORDERED: CLOPIDOGREL 75 MG TABLET PO SCH (09:00)
[2019-01-02] MEDS ORDERED: BISACODYL 5 MG TABLET PO ONE (10:41)
[2019-01-02 11:55] VITALS: BP 106/67
[2019-01-02] MEDS ORDERED: CEFUROXIME 250 MG TABLET PO SCH (12:00)
== END 2019-01-02 13:15 | disposition swing bed (61) | DRG 65 ==
LOC: EDUNIT# → EDBD → N.ED 22:11 → N.EDINP 12-31 01:52 → N.TELES 12-31 02:18
PROVIDERS: ADMIT Internal Medicine; ATTEND Internal Medicine

== ENCOUNTER 2019-03-16 18:45 | Inpatient (IN) ==
[2019-03-16] MEDS ORDERED: methylPREDNISolone SOD SUC INJ 125 MG in SODIUM CHLORIDE 0.9% 100 ML IV STA (20:23)
[2019-03-16] MEDS ORDERED: ALBUTEROL/IPRATROPIUM 3 ML NEB RESP TX STA (20:23)
[2019-03-16] MEDS ORDERED: SODIUM CHLORIDE 0.9% 500 ML IV STA (20:23)
[2019-03-16] MEDS ORDERED: ONDANSETRON 4 MG/2 ML VIAL IV STA (20:23)
[2019-03-16] MEDS ORDERED: methylPREDNISolone SOD SUC 125 MG/2 ML VIAL ONE (20:41)
[2019-03-16 20:42] LABS: Basophils # 0.1 10*3/uL (0.0-0.2); Basophils % 0.5 % (0.0-0.8); Eosinophils # 0.3 10*3/uL (0.0-0.87); Eosinophils % 2.8 % (0.00-10.9); Hematocrit 46.6 VOL% (35.7-47.0); Hemoglobin 14.2 GM/DL (12.0-16.0); Immature Granulocytes % 0.5 %; Immature Granulocytes Absolute 0.06 #; Lymphocytes # 3.8 10*3/uL (1.4-4.0); Lymphocytes % 31.6 % (21.3-54.2); Mean Corpuscular HGB Conc 30.5 GM/DL (32-36); Mean Corpuscular Volume 82.3 FL (87-102); Mean Platelet Volume 10.8 FL (9.6-12.0); Monocytes % 6.6 % (1.7-12.7); Platelet Count 494 T/CUMM (130-400); Red Blood Count 5.66 MC/CUMM (3.8-5.5); Red Cell Distribution Width 15.9 % (9.3-17.3)
[2019-03-16 21:03] LABS: Alanine Aminotransferase 16 U/L (13-56); Albumin 4.2 G/DL (3.4-5.0); Alkaline Phosphatase 65 U/L (45-117); Aspartate Amino Transferase 27 U/L (0-37); Blood Urea Nitrogen 34 MG/DL (7-18); Calcium 10.1 MG/DL (8.5-10.1); Glucose 101 MG/DL (74-106); Osmolality,Calculated 286.4 MOS/KG (273-304); Total Protein 8.3 G/DL (6.4-8.3)
[2019-03-16 21:04] LABS: PT Patient Result 11.3 SECS
[2019-03-16 21:05] LABS: Troponin I < 0.015 NG/ML (0.00-0.045)
[2019-03-16] MEDS ORDERED: methylPREDNISolone SOD SUC 125 MG/2 ML VIAL IV STA (21:05)
[2019-03-16 21:49] LABS: Apearance,Urine Slightly Hazy (Clear); Bacteria,Urine Moderate /HPF (Few); Bilirubin,Urine Negative (Negative); Blood, Urine Small mg/dL (Negative); Glucose,Urine (UA) Negative (Negative); Hyaline Casts,Urine 21 /LPF (0-3); Ketones,Urine Negative (Negative); Mucus,Urine Occasional /LPF (Occasional); Nitrite,Urine Positive (Negative); Protein,Urine Negative; RBC,Urine <1 /HPF (0-4); Squamous Epithelial Cell,Urine Occasional /HPF (0-10); Urine Color Yellow (Yellow); Urine Specific Gravity 1.011 (1.001-1.035); Urine Urobilinogen < 2.0 EU/DL (0.2-1.0); WBC,Urine 2 /HPF (0-6)
[2019-03-16 21:54] LABS: Barbiturates Screen,Urine Negative (Negative); Benzodiazepines Screen,Urine Negative (Negative); Cannabinoid Screen,Urine Negative (Negative); Opiate Screen,Urine Negative (Negative); Phencyclidine Screen,Urine Negative (Negative)
[2019-03-16] MEDS ORDERED: cefTRIAXone 1,000 MG in SODIUM CHLORIDE 0.9% 100 ML IV STA (22:05)
[2019-03-16] MEDS ORDERED: ACETAMINOPHEN 325 MG TABLET PO PRN (23:25)
[2019-03-16] MEDS ORDERED: LEVOFLOXACIN INJ 500 MG in PREMIX 1 EACH IV ONE (23:25)
[2019-03-16] MEDS ORDERED: ONDANSETRON 4 MG/2 ML VIAL IV PRN (23:25)
[2019-03-16] MEDS: SODIUM CHLORIDE 0.9% 1,000 ML IV SCH (23:50)
[2019-03-16] MEDS ORDERED: methylPREDNISolone SOD SUC 40 MG/1 ML VIAL IV ONE (23:55)
[2019-03-17] MEDS: ALBUTEROL/IPRATROPIUM 3 ML NEB RESP TX SCH ×7 (00:30→23:32)
[2019-03-17] MEDS ORDERED: methylPREDNISolone SOD SUC 125 MG/2 ML VIAL IV ONE (01:00)
[2019-03-17 04:36] LABS: Basophils % 0.4 % (0.0-0.8); Hemoglobin 12.5 GM/DL (12.0-16.0); Immature Granulocytes % 0.6 %; Immature Granulocytes Absolute 0.04 #; Lymphocytes # 1.6 10*3/uL (1.4-4.0); Mean Corpuscular HGB Conc 30.5 GM/DL (32-36); Mean Corpuscular Volume 82.7 FL (87-102); Mean Platelet Volume 10.9 FL (9.6-12.0); Monocytes % 0.6 % (1.7-12.7); Neutrophils % 75.4 % (38.7-73.9); Platelet Count 434 T/CUMM (130-400); Red Blood Count 4.96 MC/CUMM (3.8-5.5); Red Cell Distribution Width 15.4 % (9.3-17.3)
[2019-03-17 04:57] LABS: Albumin 3.4 G/DL (3.4-5.0); Bilirubin,Total 0.6 MG/DL (0.2-1.0); Calcium 9.1 MG/DL (8.5-10.1); Osmolality,Calculated 288.3 MOS/KG (273-304); Risk Ratio 3.71; Total Protein 7.4 G/DL (6.4-8.3); VLDL CHOLESTEROL 27.8 MG/DL
[2019-03-17] MEDS ORDERED: cloNIDine 0.1 MG TABLET PO SCH (08:00)
[2019-03-17] MEDS ORDERED: FENOFIBRATE 160 MG TABLET PO SCH (09:00)
[2019-03-17] MEDS ORDERED: DOCUSATE SODIUM 100 MG CAPSULE PO SCH ×2 (09:00→21:00)
[2019-03-17] MEDS ORDERED: PROPRANOLOL 80 MG PO SCH (09:00)
[2019-03-17] MEDS ORDERED: CLOPIDOGREL 75 MG TABLET PO SCH (09:00)
[2019-03-17] MEDS: SODIUM CHLORIDE 0.9% 1,000 ML IV SCH ×2 (09:45→21:10)
[2019-03-17] MEDS: methylPREDNISolone SOD SUC 40 MG/1 ML VIAL IV SCH ×2 (09:48→18:00)
[2019-03-17] MEDS: PANTOPRAZOLE 40 MG TABLET PO SCH (09:48)
[2019-03-17] MEDS ORDERED: PARoxetine 20 MG TABLET PO SCH (12:30)
[2019-03-17] MEDS: ASPIRIN EC 325 MG TABLET PO SCH (17:58)
[2019-03-17] MEDS: CLOPIDOGREL 75 MG TABLET PO SCH (17:59)
[2019-03-17] MEDS: PARoxetine 20 MG TABLET PO SCH (17:59)
[2019-03-17] MEDS: GABAPENTIN 300 MG CAPSULE PO SCH (21:11)
[2019-03-17] MEDS: LEVOFLOXACIN INJ 500 MG in PREMIX 1 EACH IV SCH (21:11)
[2019-03-18] MEDS: methylPREDNISolone SOD SUC 40 MG/1 ML VIAL IV SCH ×3 (01:42→16:50)
[2019-03-18] MEDS: ALBUTEROL/IPRATROPIUM 3 ML NEB RESP TX SCH ×5 (02:17→21:03)
[2019-03-18 05:45] LABS: Basophils % 0.1 % (0.0-0.8); Hematocrit 36.5 VOL% (35.7-47.0); Hemoglobin 11.6 GM/DL (12.0-16.0); Immature Granulocytes % 0.9 %; Immature Granulocytes Absolute 0.16 #; Lymphocytes # 2.2 10*3/uL (1.4-4.0); Mean Corpuscular HGB Conc 31.8 GM/DL (32-36); Mean Corpuscular Volume 81.1 FL (87-102); Mean Platelet Volume 11.4 FL (9.6-12.0); Monocytes % 3.8 % (1.7-12.7); Neutrophils % 83.2 % (38.7-73.9); Platelet Count 438 T/CUMM (130-400); Red Cell Distribution Width 15.5 % (9.3-17.3); White Blood Count 17.9 T/CUMM (4-12)
[2019-03-18 06:05] LABS: Osmolality,Calculated 292.7 MOS/KG (273-304)
[2019-03-18] MEDS: SODIUM CHLORIDE 0.9% 1,000 ML IV SCH ×2 (06:42→16:49)
[2019-03-18] MEDS ORDERED: ATORVASTATIN 10 MG TABLET PO SCH (09:00)
[2019-03-18] MEDS: FENOFIBRATE 160 MG TABLET PO SCH (09:24)
[2019-03-18] MEDS: ASPIRIN EC 325 MG TABLET PO SCH (09:24)
[2019-03-18] MEDS: PANTOPRAZOLE 40 MG TABLET PO SCH (09:24)
[2019-03-18] MEDS: PARoxetine 20 MG TABLET PO SCH (09:24)
[2019-03-18] MEDS: NICOTINE 14 MG/24 HR PATCH TRANSDERM SCH (09:28)
[2019-03-18] MEDS ORDERED: TUBERCULIN SKIN TEST 0.1 ML SYRINGE INTRADERM ONE (17:00)
[2019-03-18] MEDS: GABAPENTIN 300 MG CAPSULE PO SCH (21:16)
[2019-03-18] MEDS: LEVOFLOXACIN INJ 500 MG in PREMIX 1 EACH IV SCH (21:17)
[2019-03-19] MEDS: ALBUTEROL/IPRATROPIUM 3 ML NEB RESP TX SCH ×6 (00:01→20:58)
[2019-03-19] MEDS: methylPREDNISolone SOD SUC 40 MG/1 ML VIAL IV SCH ×3 (02:23→16:41)
[2019-03-19 04:31] LABS: Basophils % 0.2 % (0.0-0.8); Hematocrit 34.1 VOL% (35.7-47.0); Hemoglobin 10.4 GM/DL (12.0-16.0); Immature Granulocytes % 0.7 %; Immature Granulocytes Absolute 0.14 #; Lymphocytes # 3.1 10*3/uL (1.4-4.0); Lymphocytes % 16.2 % (21.3-54.2); Mean Corpuscular HGB Conc 30.5 GM/DL (32-36); Mean Corpuscular Volume 82.8 FL (87-102); Mean Platelet Volume 10.9 FL (9.6-12.0); Monocytes % 4.7 % (1.7-12.7); Neutrophils % 78.2 % (38.7-73.9); Platelet Count 393 T/CUMM (130-400); Red Blood Count 4.12 MC/CUMM (3.8-5.5); Red Cell Distribution Width 15.8 % (9.3-17.3); White Blood Count 19.4 T/CUMM (4-12)
[2019-03-19 04:46] LABS: Calcium 8.7 MG/DL (8.5-10.1); Osmolality,Calculated 290.7 MOS/KG (273-304)
[2019-03-19] MEDS: CLOPIDOGREL 75 MG TABLET PO SCH (08:50)
[2019-03-19] MEDS: FENOFIBRATE 160 MG TABLET PO SCH (08:50)
[2019-03-19] MEDS: ASPIRIN EC 325 MG TABLET PO SCH (08:50)
[2019-03-19] MEDS: PARoxetine 20 MG TABLET PO SCH (08:50)
[2019-03-19] MEDS: PANTOPRAZOLE 40 MG TABLET PO SCH (08:50)
[2019-03-19] MEDS: NICOTINE 14 MG/24 HR PATCH TRANSDERM SCH (08:51)
[2019-03-19] MEDS ORDERED: POTASSIUM CHLORIDE 20 MEQ TABLET PO ONE (09:00)
[2019-03-19] MEDS ORDERED: ATORVASTATIN 10 MG TABLET PO SCH (09:00)
[2019-03-19] MEDS ORDERED: NITROFURANTOIN MACROCRYSTALS 50 MG CAPSULE PO SCH (21:00)
[2019-03-19] MEDS: LEVOFLOXACIN INJ 500 MG in PREMIX 1 EACH IV SCH (22:04)
[2019-03-19] MEDS: GABAPENTIN 300 MG CAPSULE PO SCH (22:04)
[2019-03-20] MEDS: ALBUTEROL/IPRATROPIUM 3 ML NEB RESP TX SCH ×5 (00:32→14:45)
[2019-03-20] MEDS: methylPREDNISolone SOD SUC 40 MG/1 ML VIAL IV SCH ×2 (01:31→09:25)
[2019-03-20 05:34] LABS: Basophils % 0.2 % (0.0-0.8); Hematocrit 37.9 VOL% (35.7-47.0); Hemoglobin 11.7 GM/DL (12.0-16.0); Immature Granulocytes % 1.2 %; Immature Granulocytes Absolute 0.21 #; Lymphocytes # 2.8 10*3/uL (1.4-4.0); Lymphocytes % 15.6 % (21.3-54.2); Mean Corpuscular HGB Conc 30.9 GM/DL (32-36); Mean Corpuscular Volume 82.4 FL (87-102); Monocytes % 5.5 % (1.7-12.7); Neutrophils % 77.5 % (38.7-73.9); Platelet Count 416 T/CUMM (130-400); Red Cell Distribution Width 15.9 % (9.3-17.3); White Blood Count 17.6 T/CUMM (4-12)
[2019-03-20 06:01] LABS: Osmolality,Calculated 286.3 MOS/KG (273-304)
[2019-03-20 07:26] LABS: Apearance,Urine CLEAR (Clear); Bilirubin,Urine Negative (Negative); Blood, Urine Negative (Negative); Glucose,Urine (UA) 50 mg/dL (Negative); Ketones,Urine Negative (Negative); Mucus,Urine Occasional /LPF (Occasional); Nitrite,Urine Negative (Negative); Protein,Urine Negative; RBC,Urine 1 /HPF (0-4); Squamous Epithelial Cell,Urine Occasional /HPF (0-10); Urine Color Yellow (Yellow); Urine Specific Gravity 1.013 (1.001-1.035); Urine Urobilinogen < 2.0 EU/DL (0.2-1.0); WBC,Urine <1 /HPF (0-6)
[2019-03-20] MEDS ORDERED: POTASSIUM CHLORIDE 20 MEQ TABLET PO SCH (09:00)
[2019-03-20] MEDS: ASPIRIN EC 325 MG TABLET PO SCH (09:23)
[2019-03-20] MEDS: PARoxetine 20 MG TABLET PO SCH (09:23)
[2019-03-20] MEDS: PANTOPRAZOLE 40 MG TABLET PO SCH (09:24)
[2019-03-20] MEDS: FENOFIBRATE 160 MG TABLET PO SCH (09:24)
[2019-03-20] MEDS: NICOTINE 14 MG/24 HR PATCH TRANSDERM SCH (15:36)
[2019-03-20 16:51] VITALS: BP 132/79
[2019-03-20] MEDS ORDERED: ESTRADIOL 0.01% VAG CREAM 42.5 GM TUBE VAG SCH (17:04)
== END 2019-03-20 16:45 | DRG 690 ==
LOC: N.ED 18:45 → N.EDINP 22:06 → N.2E 23:03
PROVIDERS: ADMIT Internal Medicine; ATTEND Internal Medicine

== ENCOUNTER 2019-04-10 08:38 | Inpatient (IN) ==
[2019-04-10 09:07] LABS: Basophils # 0.1 10*3/uL (0.0-0.2); Basophils % 0.4 % (0.0-0.8); Hematocrit 41.1 VOL% (35.7-47.0); Hemoglobin 12.7 GM/DL (12.0-16.0); Immature Granulocytes % 1.8 %; Immature Granulocytes Absolute 0.67 #; Lymphocytes # 1.9 10*3/uL (1.4-4.0); Lymphocytes % 5.2 % (21.3-54.2); Mean Corpuscular HGB Conc 30.9 GM/DL (32-36); Mean Corpuscular Volume 81.4 FL (87-102); Mean Platelet Volume 11.4 FL (9.6-12.0); Monocytes % 4.9 % (1.7-12.7); Neutrophils % 87.7 % (38.7-73.9); Platelet Count 580 T/CUMM (130-400); Red Blood Count 5.05 MC/CUMM (3.8-5.5); Red Cell Distribution Width 16.7 % (9.3-17.3); White Blood Count 36.9 T/CUMM (4-12)
[2019-04-10 09:16] LABS: Apearance,Urine Slightly Hazy (Clear); Bacteria,Urine Occasional /HPF (Few); Bilirubin,Urine Negative (Negative); Blood, Urine Small mg/dL (Negative); Glucose,Urine (UA) Negative (Negative); Ketones,Urine 5 mg/dL (Negative); Mucus,Urine Occasional /LPF (Occasional); Nitrite,Urine Negative (Negative); Protein,Urine 100 MG/DL; Squamous Epithelial Cell,Urine Occasional /HPF (0-10); Urine Color Amber (Yellow); Urine Specific Gravity 1.019 (1.001-1.035); Urine Urobilinogen < 2.0 EU/DL (0.2-1.0); WBC,Urine 2 /HPF (0-6)
[2019-04-10 09:25] LABS: Band Neutrophils 3 % (0-10); Hypochromasia Slight; Lymphocytes 5 % (20-55); Platelet Estimate Increased; Segmented Neutrophils 85 % (50-85); Total Cells Counted 100
[2019-04-10 09:36] LABS: Albumin 3.3 G/DL (3.4-5.0); Bilirubin,Total 0.4 MG/DL (0.2-1.0); Calcium 10.7 MG/DL (8.5-10.1); Total Protein 8.1 G/DL (6.4-8.3); Troponin I 0.068 NG/ML (0.00-0.045)
[2019-04-10] MEDS ORDERED: hydrALAZINE 20 MG/1 ML VIAL IV STA (09:53)
[2019-04-10] MEDS ORDERED: SODIUM CHLORIDE 0.9% 1,000 ML IV STA (09:53)
[2019-04-10] MEDS ORDERED: PIPERACILLIN/TAZOBACTAM 3,375 MG in SODIUM CHLORIDE 0.9% 100 ML IV STA (10:07)
[2019-04-10 10:29] LABS: Barbiturates Screen,Urine Negative (Negative); Benzodiazepines Screen,Urine Negative (Negative); Cannabinoid Screen,Urine Negative (Negative); Opiate Screen,Urine Negative (Negative); Phencyclidine Screen,Urine Negative (Negative)
[2019-04-10] MEDS ORDERED: ACETAMINOPHEN 325 MG TABLET PO PRN (12:19)
[2019-04-10] MEDS ORDERED: ONDANSETRON 4 MG/2 ML VIAL IV PRN (12:19)
[2019-04-10] MEDS: PIPERACILLIN/TAZOBACTAM 3,375 MG in SODIUM CHLORIDE 0.9% 100 ML IV SCH ×2 (14:16→21:48)
[2019-04-10] MEDS: methylPREDNISolone SOD SUC 40 MG/1 ML VIAL IV SCH ×2 (14:25→21:47)
[2019-04-10] MEDS: NICOTINE 7 MG/24 HR PATCH TRANSDERM SCH (14:25)
[2019-04-10] MEDS: SODIUM CHLORIDE 0.9% 1,000 ML IV SCH ×2 (14:26→21:57)
[2019-04-10] MEDS: ENOXAPARIN 40 MG/0.4 ML SYRINGE SUBCUT SCH (14:26)
[2019-04-10] MEDS: BUDESONIDE 0.25 MG/2 ML NEB RESP TX SCH ×4 (18:03→23:46)
[2019-04-10] MEDS: ALBUTEROL/IPRATROPIUM 3 ML NEB RESP TX SCH (19:09)
[2019-04-10] MEDS ORDERED: DOCUSATE SODIUM 100 MG CAPSULE PO SCH (21:00)
[2019-04-10] MEDS: dilTIAZem Drip 125 MG/125 ML PREMIX IV SCH (21:57)
[2019-04-10] MEDS: ATORVASTATIN 10 MG TABLET PO SCH (22:05)
[2019-04-10] MEDS: GABAPENTIN 300 MG CAPSULE PO SCH (22:05)
[2019-04-10] MEDS: DOCUSATE SODIUM 100 MG CAPSULE PO SCH (22:05)
[2019-04-10] MEDS: NITROFURANTOIN MACROCRYSTALS 50 MG CAPSULE PO SCH (22:05)
[2019-04-11] MEDS: hydrALAZINE 20 MG/1 ML VIAL IV PRN (01:02)
[2019-04-11] MEDS: SODIUM CHLORIDE 0.9% 1,000 ML IV SCH ×4 (01:03→22:03)
[2019-04-11] MEDS: ALBUTEROL/IPRATROPIUM 3 ML NEB RESP TX SCH ×4 (01:06→20:18)
[2019-04-11] MEDS: PIPERACILLIN/TAZOBACTAM 3,375 MG in SODIUM CHLORIDE 0.9% 100 ML IV SCH ×3 (05:00→22:04)
[2019-04-11] MEDS: methylPREDNISolone SOD SUC 40 MG/1 ML VIAL IV SCH ×3 (06:12→22:05)
[2019-04-11 06:36] LABS: Albumin 2.5 G/DL (3.4-5.0); Bilirubin,Total 0.4 MG/DL (0.2-1.0); Calcium 9.2 MG/DL (8.5-10.1); Osmolality,Calculated 301.1 MOS/KG (273-304); Total Protein 6.7 G/DL (6.4-8.3)
[2019-04-11 06:49] LABS: Hematocrit 35.6 VOL% (35.7-47.0); Hemoglobin 10.8 GM/DL (12.0-16.0); Immature Granulocytes % 2.7 %; Immature Granulocytes Absolute 0.92 #; Mean Corpuscular HGB Conc 30.3 GM/DL (32-36); Mean Corpuscular Volume 84.4 FL (87-102); Mean Platelet Volume 11.5 FL (9.6-12.0); Monocytes % 6.4 % (1.7-12.7); Neutrophils % 84.9 % (38.7-73.9); Platelet Count 479 T/CUMM (130-400); Red Blood Count 4.22 MC/CUMM (3.8-5.5); Red Cell Distribution Width 17.2 % (9.3-17.3); White Blood Count 33.6 T/CUMM (4-12)
[2019-04-11 07:06] LABS: Band Neutrophils 5 % (0-10); Lymphocytes 5 % (20-55); Platelet Estimate Increased; Segmented Neutrophils 86 % (50-85); Total Cells Counted 100
[2019-04-11] MEDS: BUDESONIDE 0.25 MG/2 ML NEB RESP TX SCH ×2 (07:20→20:18)
[2019-04-11] MEDS ORDERED: PANTOPRAZOLE 40 MG VIAL IV SCH (09:00)
[2019-04-11] MEDS: dilTIAZem Drip 125 MG/125 ML PREMIX IV SCH ×2 (09:00→22:06)
[2019-04-11] MEDS: NICOTINE 7 MG/24 HR PATCH TRANSDERM SCH (09:01)
[2019-04-11] MEDS: hydrALAZINE 25 MG TABLET PO SCH ×3 (09:02→22:05)
[2019-04-11] MEDS: DOCUSATE SODIUM 100 MG CAPSULE PO SCH ×2 (09:02→22:05)
[2019-04-11] MEDS: POTASSIUM CHLORIDE 20 MEQ TABLET PO SCH (09:02)
[2019-04-11] MEDS: FERROUS SULFATE 325 MG TABLET PO SCH (09:02)
[2019-04-11] MEDS: PANTOPRAZOLE 40 MG TABLET PO SCH (09:03)
[2019-04-11] MEDS: PARoxetine 20 MG TABLET PO SCH (09:03)
[2019-04-11] MEDS: CLOPIDOGREL 75 MG TABLET PO SCH (09:04)
[2019-04-11] MEDS: ASPIRIN EC 325 MG TABLET PO SCH (09:04)
[2019-04-11] MEDS ORDERED: POTASSIUM CHLORIDE 20 MEQ TABLET PO PRN (09:24)
[2019-04-11] MEDS: POTASSIUM CHLORIDE RIDER 10 MEQ in PREMIX 1 EACH IV PRN ×4 (12:28→19:25)
[2019-04-11] MEDS: HYDROmorphone 2 MG/1 ML VIAL IV PRN (14:51)
[2019-04-11] MEDS: ENOXAPARIN 40 MG/0.4 ML SYRINGE SUBCUT SCH (14:54)
[2019-04-11] MEDS: NITROFURANTOIN MACROCRYSTALS 50 MG CAPSULE PO SCH (22:05)
[2019-04-11] MEDS: GABAPENTIN 300 MG CAPSULE PO SCH (22:05)
[2019-04-12] MEDS: ALBUTEROL/IPRATROPIUM 3 ML NEB RESP TX SCH ×4 (00:32→19:53)
[2019-04-12] MEDS: methylPREDNISolone SOD SUC 40 MG/1 ML VIAL IV SCH ×3 (05:03→21:04)
[2019-04-12] MEDS: PIPERACILLIN/TAZOBACTAM 3,375 MG in SODIUM CHLORIDE 0.9% 100 ML IV SCH ×3 (05:05→21:03)
[2019-04-12] MEDS: BUDESONIDE 0.25 MG/2 ML NEB RESP TX SCH ×2 (08:06→19:53)
[2019-04-12] MEDS: NICOTINE 7 MG/24 HR PATCH TRANSDERM SCH (09:11)
[2019-04-12] MEDS: PANTOPRAZOLE 40 MG TABLET PO SCH (09:12)
[2019-04-12] MEDS: FERROUS SULFATE 325 MG TABLET PO SCH (09:12)
[2019-04-12] MEDS: ASPIRIN EC 325 MG TABLET PO SCH (09:12)
[2019-04-12] MEDS: POTASSIUM CHLORIDE 20 MEQ TABLET PO SCH (09:12)
[2019-04-12] MEDS: CLOPIDOGREL 75 MG TABLET PO SCH (09:13)
[2019-04-12] MEDS: hydrALAZINE 25 MG TABLET PO SCH ×3 (09:13→21:04)
[2019-04-12] MEDS: PARoxetine 20 MG TABLET PO SCH (09:13)
[2019-04-12] MEDS: DOCUSATE SODIUM 100 MG CAPSULE PO SCH ×2 (09:13→21:04)
[2019-04-12] MEDS: ATORVASTATIN 10 MG TABLET PO SCH (09:14)
[2019-04-12] MEDS: HYDROmorphone 2 MG/1 ML VIAL IV PRN ×2 (09:24→21:04)
[2019-04-12] MEDS: ENOXAPARIN 40 MG/0.4 ML SYRINGE SUBCUT SCH (11:50)
[2019-04-12] MEDS: SODIUM CHLORIDE 0.9% 1,000 ML IV SCH (11:55)
[2019-04-12] MEDS: NITROFURANTOIN MACROCRYSTALS 50 MG CAPSULE PO SCH (21:04)
[2019-04-12] MEDS: GABAPENTIN 300 MG CAPSULE PO SCH (21:04)
[2019-04-12] MEDS: dilTIAZem Drip 125 MG/125 ML PREMIX IV SCH (22:15)
[2019-04-13] MEDS: SODIUM CHLORIDE 0.9% 1,000 ML IV SCH ×2 (00:09→12:18)
[2019-04-13] MEDS: ALBUTEROL/IPRATROPIUM 3 ML NEB RESP TX SCH ×4 (02:13→20:09)
[2019-04-13] MEDS: PIPERACILLIN/TAZOBACTAM 3,375 MG in SODIUM CHLORIDE 0.9% 100 ML IV SCH ×3 (05:00→23:40)
[2019-04-13] MEDS: methylPREDNISolone SOD SUC 40 MG/1 ML VIAL IV SCH ×3 (05:01→23:37)
[2019-04-13] MEDS: BUDESONIDE 0.25 MG/2 ML NEB RESP TX SCH ×2 (07:45→20:09)
[2019-04-13] MEDS: POTASSIUM CHLORIDE 20 MEQ TABLET PO SCH (09:08)
[2019-04-13] MEDS: DOCUSATE SODIUM 100 MG CAPSULE PO SCH (09:08)
[2019-04-13] MEDS: FERROUS SULFATE 325 MG TABLET PO SCH (09:08)
[2019-04-13] MEDS: ASPIRIN EC 325 MG TABLET PO SCH (09:08)
[2019-04-13] MEDS: hydrALAZINE 25 MG TABLET PO SCH ×2 (09:08→16:57)
[2019-04-13] MEDS: PANTOPRAZOLE 40 MG TABLET PO SCH (09:09)
[2019-04-13] MEDS: AZITHROMYCIN 250 MG TABLET PO SCH (09:09)
[2019-04-13] MEDS: NICOTINE 7 MG/24 HR PATCH TRANSDERM SCH (09:09)
[2019-04-13] MEDS: CLOPIDOGREL 75 MG TABLET PO SCH (09:09)
[2019-04-13] MEDS: PARoxetine 20 MG TABLET PO SCH (09:09)
[2019-04-13] MEDS: ENOXAPARIN 40 MG/0.4 ML SYRINGE SUBCUT SCH (12:19)
[2019-04-13] MEDS ORDERED: DEXTROSE 10% 25 GM/250 ML BAG IV PRN (15:26)
[2019-04-13] MEDS ORDERED: GLUCAGON 1 MG VIAL IM PRN (15:26)
[2019-04-13 22:36] LABS: ABG Base Excess -0.9 MMOL/L (-2.5-2.5); ABG HCO3 23.5 MMOL/L (20-26); ABG Oxygen Saturation 89.1 % (95-100); ABG PCO2 32.4 MM HG (35-48); ABG PO2 54.9 MM HG (80-95); ABG TCO2 20.6 MMOL/L (23-27); Allen Test Positive
[2019-04-14] MEDS: DOCUSATE SODIUM 100 MG CAPSULE PO SCH ×3 (00:01→22:13)
[2019-04-14] MEDS: GABAPENTIN 300 MG CAPSULE PO SCH ×2 (00:01→22:14)
[2019-04-14] MEDS: NITROFURANTOIN MACROCRYSTALS 50 MG CAPSULE PO SCH ×2 (00:01→22:13)
[2019-04-14] MEDS: ALBUTEROL/IPRATROPIUM 3 ML NEB RESP TX SCH ×4 (01:24→19:35)
[2019-04-14 04:51] LABS: Basophils # 0.1 10*3/uL (0.0-0.2); Basophils % 0.4 % (0.0-0.8); Hematocrit 29.3 VOL% (35.7-47.0); Immature Granulocytes Absolute 1.42 #; Lymphocytes % 10.6 % (21.3-54.2); Mean Corpuscular Volume 82.3 FL (87-102); Mean Platelet Volume 10.5 FL (9.6-12.0); Monocytes % 5.7 % (1.7-12.7); Neutrophils % 78.3 % (38.7-73.9); Platelet Count 452 T/CUMM (130-400); Red Blood Count 3.56 MC/CUMM (3.8-5.5); Red Cell Distribution Width 16.8 % (9.3-17.3); White Blood Count 28.4 T/CUMM (4-12)
[2019-04-14] MEDS: PIPERACILLIN/TAZOBACTAM 3,375 MG in SODIUM CHLORIDE 0.9% 100 ML IV SCH (05:00)
[2019-04-14 05:12] LABS: Calcium 8.7 MG/DL (8.5-10.1); Osmolality,Calculated 289.7 MOS/KG (273-304); Prealbumin 11.5 MG/DL (20-40)
[2019-04-14 05:17] LABS: Hemoglobin 8.8 GM/DL (12.0-16.0)
[2019-04-14 05:26] LABS: Band Neutrophils 2 % (0-10); Lymphocytes 14 % (20-55); Platelet Estimate Increased; Segmented Neutrophils 79 % (50-85); Total Cells Counted 100
[2019-04-14 05:27] LABS: Anisocytosis 1+; Macrocytosis 1+; Polychromasia Few
[2019-04-14] MEDS: POTASSIUM CHLORIDE RIDER 10 MEQ in PREMIX 1 EACH IV PRN ×4 (06:39→14:03)
[2019-04-14] MEDS: methylPREDNISolone SOD SUC 40 MG/1 ML VIAL IV SCH ×3 (06:46→23:37)
[2019-04-14] MEDS: BUDESONIDE 0.25 MG/2 ML NEB RESP TX SCH ×2 (07:30→19:35)
[2019-04-14] MEDS: dilTIAZem Drip 125 MG/125 ML PREMIX IV SCH ×2 (08:15→22:00)
[2019-04-14] MEDS: MEROPENEM 500 MG in SODIUM CHLORIDE 0.9% 100 ML IV SCH ×3 (09:06→23:58)
[2019-04-14] MEDS: hydrALAZINE 25 MG TABLET PO SCH ×4 (09:07→22:13)
[2019-04-14] MEDS: ASPIRIN EC 325 MG TABLET PO SCH (09:07)
[2019-04-14] MEDS: SODIUM CHLORIDE 0.9% 1,000 ML IV SCH (09:07)
[2019-04-14] MEDS: PARoxetine 20 MG TABLET PO SCH (09:08)
[2019-04-14] MEDS: PANTOPRAZOLE 40 MG TABLET PO SCH (09:08)
[2019-04-14] MEDS: FERROUS SULFATE 325 MG TABLET PO SCH (09:08)
[2019-04-14] MEDS: CLOPIDOGREL 75 MG TABLET PO SCH (09:08)
[2019-04-14] MEDS: POTASSIUM CHLORIDE 20 MEQ TABLET PO SCH (09:08)
[2019-04-14] MEDS: ATORVASTATIN 10 MG TABLET PO SCH (09:08)
[2019-04-14] MEDS: NICOTINE 7 MG/24 HR PATCH TRANSDERM SCH (09:08)
[2019-04-14] MEDS ORDERED: POTASSIUM PHOSPHATE 30 MMOL in SODIUM CHLORIDE 0.9% 250 ML IV ONE (11:00)
[2019-04-14] MEDS: DEXTROSE 5% 1,000 ML IV SCH (14:05)
[2019-04-14] MEDS: ENOXAPARIN 40 MG/0.4 ML SYRINGE SUBCUT SCH (15:10)
[2019-04-14] MEDS: hydrALAZINE 20 MG/1 ML VIAL IV PRN (16:19)
[2019-04-14] MEDS ORDERED: TRACE ELEMENTS (5) 1 ML, MULTIVITAMIN INJ 10 ML in AMINO ACIDS/DEXT/LYTES 5-20% 2,000 ML IV SCH (17:00)
[2019-04-14] MEDS: FAT EMULSION 20% 250 ML IV SCH (17:54)
[2019-04-14] MEDS: NYSTATIN 500,000 UNIT/5 ML UDCUP SWISH/SWAL SCH (21:43)
[2019-04-15] MEDS: ALBUTEROL/IPRATROPIUM 3 ML NEB RESP TX SCH ×3 (00:23→14:20)
[2019-04-15] MEDS: methylPREDNISolone SOD SUC 40 MG/1 ML VIAL IV SCH ×2 (05:50→14:05)
[2019-04-15] MEDS: BUDESONIDE 0.25 MG/2 ML NEB RESP TX SCH (07:48)
[2019-04-15] MEDS ORDERED: cloNIDine 0.2 MG/24 HR PATCH TRANSDERM SCH (09:00)
[2019-04-15] MEDS ORDERED: FUROSEMIDE 20 MG/2 ML VIAL IV SCH (09:00)
[2019-04-15] MEDS: MEROPENEM 500 MG in SODIUM CHLORIDE 0.9% 100 ML IV SCH (09:58)
[2019-04-15] MEDS: NYSTATIN 500,000 UNIT/5 ML UDCUP SWISH/SWAL SCH ×2 (09:59→14:06)
[2019-04-15] MEDS: hydrALAZINE 20 MG/1 ML VIAL IV SCH ×2 (09:59→14:06)
[2019-04-15] MEDS: NICOTINE 7 MG/24 HR PATCH TRANSDERM SCH (10:02)
[2019-04-15] MEDS: DEXTROSE 5% 1,000 ML IV SCH ×2 (10:19→15:03)
[2019-04-15] MEDS: ASPIRIN EC 325 MG TABLET PO SCH (10:20)
[2019-04-15] MEDS: POTASSIUM CHLORIDE 20 MEQ TABLET PO SCH (10:20)
[2019-04-15] MEDS: DOCUSATE SODIUM 100 MG CAPSULE PO SCH (10:20)
[2019-04-15] MEDS: PARoxetine 20 MG TABLET PO SCH (10:20)
[2019-04-15] MEDS: FERROUS SULFATE 325 MG TABLET PO SCH (10:20)
[2019-04-15] MEDS: CLOPIDOGREL 75 MG TABLET PO SCH (10:21)
[2019-04-15] MEDS: PANTOPRAZOLE 40 MG TABLET PO SCH (10:21)
[2019-04-15] MEDS: AZITHROMYCIN 250 MG TABLET PO SCH (10:21)
[2019-04-15] MEDS: dilTIAZem Drip 125 MG/125 ML PREMIX IV SCH (11:26)
[2019-04-15] MEDS: ENOXAPARIN 40 MG/0.4 ML SYRINGE SUBCUT SCH (14:05)
[2019-04-15] MEDS: FAT EMULSION 20% 250 ML IV SCH (14:06)
[2019-04-15 16:39] VITALS: BP 153/67
[2019-04-15] MEDS ORDERED: TRACE ELEMENTS (5) 1 ML, MULTIVITAMIN INJ 10 ML in AMINO ACIDS/DEXT/LYTES 5-20% 2,000 ML IV SCH (17:00)
== END 2019-04-15 16:47 | DRG 305 ==
LOC: EDUNIT# → N.ED 08:38 → N.EDINP 10:13 → N.TELEN 12:18
PROVIDERS: ADMIT Internal Medicine; ATTEND Internal Medicine